=== PATIENT | female | born 1950 | race Caucasian/White ===

== ENCOUNTER → 2018-11-19 | Outpatient (CLI) | payer MEDICARE, SELFPAY ==
[2018-11-17 14:19] VITALS: BMI 27.6
--- NOTE | 2018-11-19 08:58 | EKG12_ITS ---
Test Reason : TACHY Blood Pressure : / mmHG Vent. Rate : 099 BPM Atrial Rate : 099 BPM P-R Int : 110 ms QRS Dur : 124 ms QT Int : 364 ms P-R-T Axes : 068 039 055 degrees QTc Int : 467 ms Sinus rhythm with short SD Right bundle branch block Abnormal ECG No previous ECGs available Confirmed by LAKESHIA PARMAR, JJ ([id number]), film editor supervisor TAYLOR MILLER ([id number]) on 11/24/2018 1:32:12 PM Referred By: Karen Dean Confirmed By:JJ ASHER MD
== END | disposition home or self-care (01) ==
LOC: CVS 08:57
PROVIDERS: Family Provider Internal Medicine; PCP Internal Medicine; Referring Provider Internal Medicine; Visit Provider Internal Medicine
DX: R00.0 Tachycardia, unspecified (principal)
CPT/HCPCS: 93005

== ENCOUNTER → 2018-12-19 | Outpatient (CLI) | payer MEDICARE, SELFPAY ==
[2018-11-17 14:19] VITALS: BMI 27.6
== END | disposition home or self-care (01) ==
LOC: LAB 14:25
PROVIDERS: Family Provider Internal Medicine; PCP Internal Medicine; Referring Provider Internal Medicine Hematology & Oncology; Visit Provider Internal Medicine Hematology & Oncology
DX: C90.00 Multiple myeloma not having achieved remission (principal)
CPT/HCPCS: 86850; 86900; 86901

== ENCOUNTER 2019-02-16 13:03 | Inpatient (IN) | payer MEDICARE, SELFPAY ==
[2019-02-02 09:02] VITALS: BMI 27.6
[2019-02-16 13:05] VITALS: BP 96/59; PULSE 111; RESP 16; TEMP 36.3; O2SAT 99; BMI 26.2
--- NOTE | 2019-02-16 13:40 | ED.VIS.GEN ---
History of Present Illness Chief Complaint: Abn Labs Detail of Chief Complaint: Tumor lysis syndrome Informant: Patient, - - Dr. Thomas Narrative: Patient presents with general fatigue. Patient received chemotherapy last week for multiple myeloma. Based on her labs obtained today at the oncologist office she has evidence of tumor lysis syndrome. She was sent in for IV fluids for hydration. She may require allopurinol for her elevated uric acid and a evaluation by nephrology. Dr. Thomas states that she was admitted to the hospital in [place] a few weeks ago with the same. Patient's only complaint is generalized fatigue. She states she does have some back pain but did pull a muscle in her back. She is been urinating without difficulty. - Past Medical History (1) Larynx cancer Status: Chronic (2) Multiple myeloma Status: Chronic (3) Hypothyroidism Status: Chronic (4) Type 2 diabetes mellitus Status: Chronic Past Medical History - Allergies and Home Meds Allergies/Adverse Reactions: Allergies No Known Allergies Allergy (Verified 02/16/19 13:04) Primary Care Physician: Karen Dean MD [Primary Care Provider] - Prior records reviewed: Yes Smoking Status: Former smoker Review of Systems General: Denies: Chills, Fever Eyes: Denies: Visual changes - bilaterally ENT: Denies: Bilateral ear pain Cardiovascular: Denies: Chest pain Respiratory: Denies: Dyspnea, Cough Gastrointestinal: Denies: Abdominal pain, Nausea, Vomiting, Diarrhea Genitourinary: Denies: Dysuria, Hematuria Musculoskeletal: Reports: Back pain Skin: Denies: Rash Neurological: Reports: Weakness - Generalized weakness. Denies: Headache Allergy: Denies: Uticaria Physical Exam Vital Signs/Narrative: Vital Signs Temp Pulse Resp BP Pulse Ox 02/16/19 13:05 97.4 F L 111 H 16 96/59 L 99 Inital Vital Signs reviewed: Yes General: Well nourished, Well developed Head: Normocephalic, Atraumatic Eyes: Perrl, EOMI ENT: Moist mucous membranes, - - Tracheostomy present Cardiovascular: Regular rate, Regular rhythm Respiratory: No distress, CTA bilaterally Abdomen: Soft, Nontender, Hypoactive bowel sounds Back: Nontender Skin: Normal color Neurological: Alert, Oriented x3 Psychological: Normal affect Diagnostic/Tx/Re-eval - Medical Decision Making Paperwork was sent over from the oncology office. Her CBC today reveals a hemoglobin of 9.3 and hematocrit of 28.8. Platelet count is 146,000. Chemistry studies reveal a BUN of 20 and a creatinine of 2.50. Previous creatinine on January 19 was 1.0. Her potassium is normal at 4.1. Her uric acid is 8.7. IV line will be established and patient will be given IV fluid bolus here. I will speak with hospitalist regarding admission. ED Disposition - Plan for ED Patient: Disposition: Acute Care Hospital [facility] Diagnosis: Tumor lysis syndrome Referrals: Karen Dean MD [Primary Care Provider] -
[2019-02-16] MEDS: 0.9% Normal Saline 1,000 ML 1000 ML IV (13:59)
--- NOTE | 2019-02-16 14:38 | HP.PCM_ITS ---
Problem List (1) Tumor lysis syndrome Status: Acute History of Present Illness Date of Admission: 02/16/19 The patient is a 68 year old F who is undergoing chemotherapy for multiple myeloma per Dr. Thomas and had f/u lab done today and evidence of tumor lysis syndrome was noted with a creatinine of 2.1. she was instructed to come into the ED for treatment. She has been undergoing chemo now for about 3 mos and has had the diagnosis of multiple myeloma now for about 1 yr. About 2 weeks about she was admitted at [place] for the same thing and responded well to IVF. She has a h/o laryngeal cancer and had a total laryngectomy for this. She is feeling well otherwise and only complains of some fatigue which is chronic for her. Pt states that she is on Lovenox 80 mcg BID for DVT related to malignancy. 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 DVT (deep venous thrombosis) I82.409 Emphysema lung J43.9 GERD (gastroesophageal reflux disease) K21.9 Hyperlipidemia E78.5 Hypothyroidism E03.9 Laryngeal cancer C32.9 Leg ulcer L97.909 Tracheostomy present Z93.0 Type 2 diabetes mellitus E11.9 Dx : 2005 Last exacerbation : DKA : never Hypoglycemic episode : never ER visit : never HTN (hypertension) I10 Allergies No Known Allergies Allergy (Verified 02/16/19 13:04) Home Medications: Ambulatory Orders Medication Instructions Recorded albuterol sulfate HFA 90 2 puff INHALATION Q4H PRN g 01/23/18 mcg/actuation aerosol inhaler Enoxaparin Sodium 02/16/19 Glipizide 10 mg PO BID 02/16/19 Hydrocodone/Acetaminophen 1 ea PO Q6H PRN PRN 02/16/19 [Hydrocodon-Acetaminophn 10-325] Levothyroxine Sodium 137 mcg PO DAILY 02/16/19 Lisinopril [Prinivil] 15 mg PO DAILY 02/16/19 Metformin HCl 1,000 mg PO BID 02/16/19 Surgical History: - - total laryngectomy Psychiatric History: No pertinent psych hx 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 Denies: Anorexia, Chills, Fever, Night Sweats, Malaise, Weight Change, Fatigue Eyes: Denies: Blurred vision, Cataracts, Conjunctivae Inflammation, Double vision, Drainage, Eyelid Inflammation, Pain, Redness, Vision Change HEENT: Denies: Difficulty Hearing, Difficulty Swallowing, Dysphasia, Ear Pain, Eye Pain, Hard of Hearing, Head Aches, Hearing Changes, Nasal bleeding, Nasal Congestion, Post Nasal Drip, Sinus Congestion, Sinus Drainage, Sore Throat, Visual Changes Cardiovascular: Denies: Chest Pain, Claudication, Chest Pressure, Chest Tightness, Edema, Heaviness, Light Headedness, Orthopnea, Palpitations, Paroxysmal Noc. Dyspnea, Syncope Respiratory: Denies: Cough, Hemoptysis, Pleuritic Pain, Shortness of Breath, Shortness of breath at rest, Shortness of breath upon exertion, Sputum production, Wheezing Gastrointestinal: Denies: Abdominal Pain, Constipation, Diarrhea, Dyspepsia, Hematemesis, Hematochezia, Nausea, Melena, Vomiting - superficial tenderness 2/2 lovenox injections Genitourinary: Denies: Dysuria, Frequency, Hematuria, Hesitancy, Incontinence, Nocturia, Retention, Urgency Gynecological: Denies: Breast symptoms, Excessively long or heavy periods, Sexual concerns, Vaginal bleeding, Vaginal discharge, Vaginal itching Musculoskeletal: Denies: Arm Pain, Back Pain, Foot Pain, Hand Pain, Joint Pain, Joint stiffness, Joint swelling, Joint Tenderness, Leg Pain, Muscle pain, Neck Pain, Shoulder Pain Skin: Denies: Dryness, Jaundice, Lesions, Pruritis, Rash, Skin Changes Neurological: Denies: Balance problems, Blurred vision, Double vision, Change in Speech, Slurred speech, Confusion, Difficulty swallowing, Focal weakness, Headaches, Incoordination, Numbness, Tingling, Tremor, Seizures Psychiatric: Denies: Anxiety, Depression, Suicidal Ideations Endocrine: Denies: Change in Body Habitus, Heat/ Cold Intolerance, Polydipsia, Polyuria, Hx of Irradiation, Hx of Thyroiditis Hematologic/ Lymphatic: Reports: Anemia. Denies: Adenopathy, Easy Bruising, Easy Bleeding, Petechiae, Purpura, Hx of blood clot, Hx of blood transfusion VTE Information - Inpt Only VTE Present on Admission: No Patient Problems: Active and Suspected Problems (Last Reviewed 07/21/18 @ 14:52 by Alba Garcia) Tumor lysis syndrome (Acute) - Physical Exam Vitals/I&O's: Vital Signs Temp Pulse Resp BP Pulse Ox 97.4 F L 111 H 16 96/59 L 99 02/16/19 13:05 02/16/19 13:05 02/16/19 13:05 02/16/19 13:05 02/16/19 13:05 Oxygen Delivery Method Room Air Weight: 71.668 kg Body Mass Index (BMI) 26.2 General: Alert, Oriented x3, Cooperative, No apparent distress, Well developed, Well nourished HEENT: Atraumatic, PERRLA, EOMI, Normocephalic, EAC Clear Oral: Moist Mucosa, No Gingival or Mucosal Lesions/ Ulcerations, - - poor dentition Neck: Supple, No JVD, Negative Carotid Bruits, Negative Hepatojugular Reflux, No Nodes, No Nuchal Rigidity, Trachea Midline, - - stoma in place related to total laryngectomy Lungs: No rhonchi, No rales, Diminished, Wheezes, - - comfortable breathing Cardiovascular: Regular rate, Regular Rhythm, Normal S1, Normal S2, No murmurs, No Ectopic Activity, No rub noted, No Gallop Abdomen: Bowel Sounds Present, Soft, Non-Distended, No Hepato-splenomegaly, Tender - superfical tenderness, No hernias noted Extremities: No clubbing, No cyanosis, No edema, No Calf Tenderness, Peripheral Pulses Normal Skin: No rashes, No breakdown Musculoskeletal: No Tenderness to Palpation of Joints or Extremities, No Muscle Wasting Lymphatic: No Cervical, Supraclavicular, or Inguinal Adenopathy Neurological: Cranial nerves II-XII grossly intact, Deep Tendon Reflexes 2+/4 and Symmetrical, Neuro grossly intact, Motor Exam 5/5 strength throughout, Muscle tone normal, Coordination normal Psych/Mental Status: Normal Affect, Appropriate Current Medications Albuterol Sulfate (Ventolin Aerosols) 2.5 mg INHALATION Q4H PRN PRN PRN Reason: SOB &/OR WHEEZING Enoxaparin Sodium (Lovenox) 70 mg SC Q12@0600,1800 LAURIE Sodium Chloride () 1,000 mls @ 150 mls/hr IV .Q6H40M LAURIE Levothyroxine Sodium (Synthroid) 137 mcg PO DAILY@0600 [facility] Assessment/Plan All Active Problems (Last Reviewed 07/21/18 @ 14:52 by Alba Garcia) Tumor lysis syndrome (Acute) Tumor Lysis Syndrome -aggressive hydration -Allopurinol 200 TID for now -check uric acid now and in am -? rasburicase if meets criteria and no improvements in uric acid with allopurinol and hydration MARIA D -2/2 to tumor lysis -aggresive hydration (NS @ 250 cc/hr for now) -UO is good -Check CMP now -q 8 hr I/O -repeat CMP/Mag and Phos in am -may need to consider nephrology consult if doesn't improve or worsens with current treatment DM-2 Uncontrolled -A1c 10.6 (11/17/18) -On Metformin and Glipizide at home -will hold for now with creatinine elevation -diabetic diet -AC SSI for blood sugar control for now H/O DVT x2 -lovenox 80 mg BID as ordered at home -has h/o DVT x2 related to malignancy Multiple Myeloma -consult Hem/Onc COPD/Emphysema -continue prn albuterol -IS DJD -continue [place] for pain relief H/O Laryngeal Ca with total Laryngectomy -stable -has stoma -no dietary restrictions Code Visit Inpatient E&M: 63212 Init Hosp L3
[2019-02-16 15:19] VITALS: BP 113/64; PULSE 98; RESP 20; TEMP 36.7; O2SAT 92
[2019-02-16 15:21] VITALS: BMI 26.2
[2019-02-16 15:26] VITALS: BMI 26.3
[2019-02-16 16:02] LABS: ALB/GLOB Ratio 0.7 RATIO (0.9-2.4); AST(SGOT) 19 U/L (15-37); Alanine Aminotransfer ALT/SGPT 40 U/L (13-56); Albumin, Serum 2.6 g/dL (3.2-5.0); Alkaline Phosphatase 116 U/L (45-117); Anion Gap 8 (5-15); BUN 22 mg/dL (7-18); BUN/Creat Ratio 8.6 RATIO (10-20); Calcium,Total 7.1 mg/dL (8.5-10.1); Chloride 104 mmol/L (98-107); Creatinine, Serum 2.57 mg/dL (0.55-1.02); EST Glomerular Filtration Rate 20 mL/min (>60); Est Glom Filt Rate - Afr Amer 24 mL/min (>60); Estimated Creatinine Clearance 19.38 ml/min; Globulin 3.8 g/dL (2.2-4.2); Glucose 86 mg/dL (74-106); Potassium 3.7 mmol/L (3.5-5.1); Protein, Total 6.4 g/dL (6.4-8.2); Sodium Level 138 mmol/L (136-145); Uric Acid 7.9 mg/dL (2.6-6.0)
[2019-02-16] MEDS: 0.9% Normal Saline 1,000 ML 250 ML IV ×2 (16:10→20:05)
[2019-02-16 17:20] LABS: Bedside Glucose 98 mg/dL (70-110)
[2019-02-16] MEDS: Allopurinol 100 MG Tablet 200 MG PO (17:21)
--- NOTE | 2019-02-16 17:22 | CPS ---
zaire cheng'emmanuelle pt has trach
[2019-02-16 21:20] VITALS: BP 121/62; PULSE 98; RESP 20; TEMP 37.2; O2SAT 97
[2019-02-16] MEDS: Mag Hydrox/Al Hydrox/Simeth 30 ML UDC PO (21:35)
[2019-02-16] MEDS: Enoxaparin 80 MG/0.8 ML Syringe 70 MG SC (21:37)
--- NOTE | 2019-02-16 21:42 | NURSING ---
Blood sugar at this time is 67. Peanut butter crackers and orange juice 4 oz. given per pt. request. Will monitor. Pt. asymptomatic.
[2019-02-16 22:00] LABS: Bacteria 0 SEEN /hpf (None Seen); Mucous, Urine 0 SEEN /hpf (<or=2+); White Blood Cells 0 SEEN /hpf (0-5)
[2019-02-16 22:06] LABS: Bedside Glucose 67 mg/dL (70-110)
[2019-02-16 22:14] LABS: Color, Urine Yellow (Yellow); Glucose, Dipstick Normal (Normal); Ketone-Dipstick Negative (Negative); Leukocyte Esterase-Dipstick Negative /ul (Negative); Nitrite-Dipstick Negative (Negative); Occult Blood-Urine 150 /ul (Negative); Protein-Dipstick 15 mg/dl (Negative); Urine Bilirubin Dipstick Negative (Negative); Urine Clarity Clear (Clear); Urine Urobilinogen Normal (Normal)
[2019-02-16 22:19] LABS: Red Blood Cells-Urine 0-5 SEEN /hpf (0-5); Squamous Epithelial Cells - UA 0-5 SEEN /hpf (5-10)
[2019-02-17] VITALS (7 sets, daily range): BP systolic 112–133; BP diastolic 51–79; PULSE 84–111; RESP 14–18; TEMP 37.1–38.2; O2SAT 93–100
[2019-02-17] MEDS: 0.9% Normal Saline 1,000 ML 125 ML IV ×2 (00:39→07:57)
[2019-02-17] MEDS: Levothyroxine 137 MCG Tablet PO (06:10)
[2019-02-17 06:45] LABS: Bedside Glucose 121 mg/dL (70-110)
[2019-02-17 06:54] LABS: Absolute Lymphocyte Count 0.41 X10^3/uL (0.83-4.51); Absolute Neutrophil Count 0.4 X10^3/uL (2.0-7.7); Basophil# 0.01 X10^3/uL; Eosinophil# 0.08 X10^3/uL; Eosinophils% 7.7 % (0-5); Hematocrit 25.6 % (37-47); Hemoglobin 7.9 g/dL (12.0-15.0); Lymphocyte # 0.41 X10^3/ul (4.0); Lymphocyte % 39.4 % (19-41); Mean Corp Hgb Conc 30.9 g/dL (32-36); Mean Corpuscular Hgb 30.7 pg (27.0-32.0); Mean Corpuscular Volume 99.6 fL (81-99); Mean Platelet Vol. 11.8 fl (6.2-12.0); Monocyte% 9.6 % (0-10); NRBC Flagged by Analyzer 0 % (0-5); Neutrophil # 0.43 X10^3/uL (2.7-7.7); Neutrophil % 41.3 % (47-70); POSITIVE COUNT YES; POSITIVE DIFFERENTIAL YES; POSITIVE MORPHOLOGY YES; Platelet Count 114 K/mm3 (150-450); RBC Distribution Width CV 16.5 % (11.6-14.6); RBC Distribution Width SD 58.7 fl (35.1-43.9); Red Blood Count 2.57 M/mm3 (4.2-5.4)
[2019-02-17 07:17] LABS: ALB/GLOB Ratio 0.7 RATIO (0.9-2.4); AST(SGOT) 26 U/L (15-37); Alanine Aminotransfer ALT/SGPT 33 U/L (13-56); Albumin, Serum 2.1 g/dL (3.2-5.0); Alkaline Phosphatase 105 U/L (45-117); Anion Gap 6 (5-15); BUN 20 mg/dL (7-18); BUN/Creat Ratio 8.3 RATIO (10-20); Calcium,Total 6.6 mg/dL (8.5-10.1); Chloride 107 mmol/L (98-107); Creatinine, Serum 2.41 mg/dL (0.55-1.02); EST Glomerular Filtration Rate 21 mL/min (>60); Est Glom Filt Rate - Afr Amer 26 mL/min (>60); Estimated Creatinine Clearance 20.66 ml/min; Globulin 3.2 g/dL (2.2-4.2); Glucose 118 mg/dL (74-106); Magnesium 1.1 mg/dL (1.6-2.6); Phosphorus 2.3 mg/dL (2.5-4.9); Potassium 4.1 mmol/L (3.5-5.1); Protein, Total 5.3 g/dL (6.4-8.2); Sodium Level 138 mmol/L (136-145); Uric Acid 6.8 mg/dL (2.6-6.0)
[2019-02-17 07:35] LABS: Differential Indicated SCAN CRITERIA MET
[2019-02-17 07:40] LABS: Hypochromasia 1+
[2019-02-17] MEDS: Allopurinol 100 MG Tablet 200 MG PO ×2 (07:57→12:37)
[2019-02-17] MEDS: Enoxaparin 80 MG/0.8 ML Syringe 70 MG SC ×2 (07:57→21:29)
[2019-02-17] MEDS: TBO-FILGRASTIM 300 MCG/0.5 ML ML SC (07:58)
[2019-02-17 08:37] LABS: CPK Total, Creatine Kinase 54 U/L (26-192)
--- NOTE | 2019-02-17 08:48 | ONC.CON.INP2 ---
- Problem List (1) Tumor lysis syndrome Status: Acute Subjective Chief Complaint: from Dr Thomas office History of Present Illness: Per Dr. 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 Bilateral DVTs ? HPI:??68-year-old female with history of?Laryngeal CA in 2003 in [place],?nonhealing ulcer on the lower extremities since last fall. Patient is seen her primary care physician and more recently Dr. Franz for evaluation and biopsy of her nonhealing skin ulcers.?? ? Patient also has palpable purpura with necrotic center on her arm which is biopsy last week. She also complained of neuropathy the lower extremity and also her both hands more recently. Additional tests revealed a monoclonal protein?0.48 gm/dl?and elevated CRP. Hepatitis B, hepatitis C?Ag & Ab?as well as HIV were negative. Her rheumatoid factor and?MAY?were negative. Her?cryoglobulin level was markedly elevated?5,200. ? Patient also complaining of dyspnea with exertion. She has a history of head and neck cancer total laryngectomy received chemoradiation therapy in 2003. She was started on prednisone 20?mg?twice daily last week and her skin ulcers on her legs appears to be improving. Patient has no fever chills night sweats, weight loss.?No hyperviscosity symptoms,?no evidence of anemia, hypercalcemia or renal insufficiency. She denies any bone pain or arthritis pain. ? Current treatment:?Darzelex &?Revlimid patient was seen in the office for evaluation for next cycle of treatment yesterday. Subsequent to the visit, lab work returned showing acute kidney injury with elevated LDH and uric acid raising concern for possible tumor lysis syndrome. Patient was also found to be neutropenic. She was directed to the emergency room. She was admitted and started on IV hydration. She offers no complaints is morning. Says she's been feeling quite well. She denies gross hematuria and dysuria. No flank pain per se. No recent fever. She's tolerating treatment very well. Vasculitic rash significantly improved since taking initial prednisone taper and starting on definitive treatment for underlying multiple myeloma. Past Medical History: Chronic Problems (Last Reviewed 07/21/18 @ 14:52 by Alba Garcia) Larynx cancer (Chronic) Multiple myeloma (Chronic) Hypothyroidism (Chronic) Tachycardia (Chronic) Dermatitis (Chronic) Type 2 diabetes mellitus (Chronic) Type 2 diabetes, uncontrolled, with ulcer of ankle (Chronic) Last A1c 10 Past Medical/Surgical History: Past Medical History - Most Recent Inpatient Visit Past Medical History Start: 02/16/19 15:07 Text: Status: Complete Freq: ONCE Protocol: Document 02/16/19 15:26 EY (Rec: 02/16/19 15:29 EY [id number]) BMI Required to complete PMH What is Patient's BMI 26.3 Past Medical History Unable History Recalled No Query Text:Pt Unable/Family Not Present Neurologic Medical History Hx Stroke/TIA No Hx Dementia/Alzheimer's No Hx Parkinson's Disease No Hx Seizures No Hx Multiple Sclerosis No Hx Migraines No Cardiac Medical History VTE Present on Admission No Hx of Deep Vein Thrombosis/VTE/PE Yes Hx Hypertension Yes: controlled with medications Hx Chest Pain/Angina No Hx Heart Attack No Hx Cardiac Surgery/Stents/Etc. No Hx Heart Failure No Hx Pacemaker/AICD No Hx Irregular Heartbeat and/or Afib No Hx Anticoagulant Therapy Yes: Lovenox Query Text:(Coumadin, Aspirin, Plavix, Xarelto, etc.) Hx Pain in Legs when Walking/Leg Cramps No Respiratory Medical History Hx COPD No Hx Emphysema No Hx Smoking Yes Smoking Status Former smoker Tobacco Use - Hx Smoking Cessation Date 01/31/04 Hx Tobacco Use in last 12 months No Hx Sleep Apnea No Do you snore loudly (louder than talking No or can be heard through closed doors)? Do you often feel tired/ fatigued/ No sleepy during daytime? Has anyone observed you stop breathing No during sleep? STOP Results Negative GI Medical History Hx Ulcer No Hx Hepatitis No Hx Cirrhosis No Hx GI Bleed No Hx Unplanned Weight Loss No Genitourinary Medical History Indwelling Catheter in Place on Arrival/ No Admission Hx Renal Disease No Hx Dialysis No Musculoskeletal History Hx Arthritis No Hx Rheumatoid Arthritis No Endocrine Medical History Hx Diabetes Yes Hx Thyroid Disease Yes Hematologic Medical History Hx of Blood Transfusion Yes Hx of Transfusion in last 3 Months No Ever experience any problems with No transfusion(s)? Hx of Preganancy in last 3 Months No Nurse Filling Out Transfusion & EYOUNG Questions: Date: 02/16/19 Time: 15:28 Psycho/Social Medical History Hx Depression No Hx Anxiety No Hx Behavior Disorder No Hx Alcohol Use No Hx Substance Use No Other Medical History Hx Blood Disorders No Hx Anemia Yes Hx Cancer Yes: MULTIPLE MYELOMA, larynx Hx Drug Resistant Organism No Wound/Pressure Injury Present on Arrival No /Admission Query Text:If yes, chart assessment in Shift/Clinical Findings Central Line/PICC/VAD Present on Arrival No /Admission Antibiotics within last 7 days? No Risk for Readmission Number of Risk Factors 5 At Risk for Readmission Patient is At Risk For Readmission Patient is eligible for Call Back Y Past Medical History (Last Reviewed 07/21/18 @ 14:52 by Alba Garcia) Bronchitis (Acute) DJD (degenerative joint disease) of knee (Acute) DVT (deep venous thrombosis) (Acute) Emphysema lung (Acute) GERD (gastroesophageal reflux disease) (Acute) Hyperlipidemia (Acute) Hypothyroidism (Acute) Laryngeal cancer (Acute) Leg ulcer (Acute) Tracheostomy present (Acute) Type 2 diabetes mellitus (Acute) HTN (hypertension) (Chronic) - Social History Lives: With Family Smoking Status: Former smoker Tobacco Use: - Alcohol: None Drugs: None Allergies/Adverse Reactions: Allergy/AdvReac Type Severity Reaction Status Date / Time No Known Allergies Allergy Verified 02/16/19 13:04 Vital Signs Height 1.65 m Weight: 76.3 kg Weight in Pounds 168.2 lbs Pulse Ox 95 Temperature 98.7 F Pulse Rate 84 Respiratory Rate 16 Blood Pressure 112/51 Blood Pressure Position Semi-Fowlers - Physical Exam General: Alert, Oriented x3 Cardiac:: Regular rhythm Lungs: Normal air movement Abdomen:: Non-distended Skin:: - - A few remnant palpable purpura on the lower extremity scattered. Overall markedly improved. Laboratory Data: Laboratory Tests 02/17/19 02/17/19 02/17/19 Range/Units 06:35 06:35 06:35 WBC 1.0 L* (4.4-11.0) K/mm3 RBC 2.57 L (4.2-5.4) M/mm3 Hgb 7.9 L (12.0-15.0) g/dL Hct 25.6 L (37-47) % MCV 99.6 H (81-99) fL MCH 30.7 (27.0-32.0) pg MCHC 30.9 L (32-36) g/dL RDW Std Deviation 58.7 H (35.1-43.9) fl RDW Coeff of Nathan 16.5 H (11.6-14.6) % Plt Count 114 L (150-450) K/mm3 MPV 11.8 (6.2-12.0) fl Immature Gran % (Auto) 1.000 H (0.0-0.9) % Neut % (Auto) 41.3 L (47-70) % Lymph % (Auto) 39.4 (19-41) % Dubois % (Auto) 9.6 (0-10) % Eos % (Auto) 7.7 H (0-5) % Baso % (Auto) 1.0 (0-1) % Absolute Neuts (auto) 0.4 L (2.0-7.7) X10^3/uL Absolute Lymphs (auto) 0.41 L (0.83-4.51) X10^3/uL Nucleated RBC % 0 (0-5) % Diff Path Review May foll Hypochromasia 1+ Sodium 138 (136-145) mmol/L Potassium 4.1 (3.5-5.1) mmol/L Chloride 107 (98-107) mmol/L Carbon Dioxide 25.0 (21.0-32.0) mmol/L Anion Gap 6 (5-15) BUN 20 H (7-18) mg/dL Creatinine 2.41 H (0.55-1.02) mg/dL Estim Creat Clear Calc 20.66 ml/min Est GFR (MDRD) Af Amer 26 L (>60) mL/min Est GFR (MDRD) Non-Af 21 L (>60) mL/min BUN/Creatinine Ratio 8.3 L (10-20) RATIO Glucose 118 H (74-106) mg/dL Uric Acid 6.8 H (2.6-6.0) mg/dL Calcium 6.6 L (8.5-10.1) mg/dL Phosphorus 2.3 L (2.5-4.9) mg/dL Magnesium 1.1 L (1.6-2.6) mg/dL Total Bilirubin 0.30 (0.20-1.00) mg/dL AST 26 (15-37) U/L ALT 33 (13-56) U/L Alkaline Phosphatase 105 (45-117) U/L Total Creatine Kinase 54 (26-192) U/L Total Protein 5.3 L (6.4-8.2) g/dL Albumin 2.1 L (3.2-5.0) g/dL Globulin 3.2 (2.2-4.2) g/dL Albumin/Globulin Ratio 0.7 L (0.9-2.4) RATIO Urine Color (Yellow) Urine Clarity (Clear) Urine pH (5.0 - 8.0) Ur Specific [place] (1.002-1.030) Urine Protein (Negative) mg/dl Urine Glucose (UA) (Normal) mg/dl Urine Ketones (Negative) mg/dl Urine Occult Blood (Negative) /ul Urine Nitrite (Negative) Urine Bilirubin (Negative) mg/dL Urine Urobilinogen (Normal) mg/dl Ur Leukocyte Esterase (Negative) /ul Urine RBC (0-5) /hpf Urine WBC (0-5) /hpf Ur Squamous Epith Cells (5-10) /hpf Urine Bacteria (None Seen) /hpf Urine Mucus (<or=2+) /hpf POC Glucose (70-110) mg/dL 02/17/19 02/16/19 02/16/19 Range/Units 06:33 21:40 21:30 WBC (4.4-11.0) K/mm3 RBC (4.2-5.4) M/mm3 Hgb (12.0-15.0) g/dL Hct (37-47) % MCV (81-99) fL MCH (27.0-32.0) pg MCHC (32-36) g/dL RDW Std Deviation (35.1-43.9) fl RDW Coeff of Nathan (11.6-14.6) % Plt Count (150-450) K/mm3 MPV (6.2-12.0) fl Immature Gran % (Auto) (0.0-0.9) % Neut % (Auto) (47-70) % Lymph % (Auto) (19-41) % Dubois % (Auto) (0-10) % Eos % (Auto) (0-5) % Baso % (Auto) (0-1) % Absolute Neuts (auto) (2.0-7.7) X10^3/uL Absolute Lymphs (auto) (0.83-4.51) X10^3/uL Nucleated RBC % (0-5) % Diff Path Review Hypochromasia Sodium (136-145) mmol/L Potassium (3.5-5.1) mmol/L Chloride (98-107) mmol/L Carbon Dioxide (21.0-32.0) mmol/L Anion Gap (5-15) BUN (7-18) mg/dL Creatinine (0.55-1.02) mg/dL Estim Creat Clear Calc ml/min Est GFR (MDRD) Af Amer (>60) mL/min Est GFR (MDRD) Non-Af (>60) mL/min BUN/Creatinine Ratio (10-20) RATIO Glucose (74-106) mg/dL Uric Acid (2.6-6.0) mg/dL Calcium (8.5-10.1) mg/dL Phosphorus (2.5-4.9) mg/dL Magnesium (1.6-2.6) mg/dL Total Bilirubin (0.20-1.00) mg/dL AST (15-37) U/L ALT (13-56) U/L Alkaline Phosphatase (45-117) U/L Total Creatine Kinase (26-192) U/L Total Protein (6.4-8.2) g/dL Albumin (3.2-5.0) g/dL Globulin (2.2-4.2) g/dL Albumin/Globulin Ratio (0.9-2.4) RATIO Urine Color Yellow (Yellow) Urine Clarity Clear (Clear) Urine pH 6.0 (5.0 - 8.0) Ur Specific [place] 1.010 (1.002-1.030) Urine Protein 15 H (Negative) mg/dl Urine Glucose (UA) Normal (Normal) mg/dl Urine Ketones Negative (Negative) mg/dl Urine Occult Blood 150 H (Negative) /ul Urine Nitrite Negative (Negative) Urine Bilirubin Negative (Negative) mg/dL Urine Urobilinogen Normal (Normal) mg/dl Ur Leukocyte Esterase Negative (Negative) /ul Urine RBC 0-5 SEEN (0-5) /hpf Urine WBC 0 SEEN (0-5) /hpf Ur Squamous Epith Cells 0-5 SEEN (5-10) /hpf Urine Bacteria 0 SEEN (None Seen) /hpf Urine Mucus 0 SEEN (<or=2+) /hpf POC Glucose 121 H 67 L (70-110) mg/dL 02/16/19 02/16/19 Range/Units 17:15 15:17 WBC (4.4-11.0) K/mm3 RBC (4.2-5.4) M/mm3 Hgb (12.0-15.0) g/dL Hct (37-47) % MCV (81-99) fL MCH (27.0-32.0) pg MCHC (32-36) g/dL RDW Std Deviation (35.1-43.9) fl RDW Coeff of Nathan (11.6-14.6) % Plt Count (150-450) K/mm3 MPV (6.2-12.0) fl Immature Gran % (Auto) (0.0-0.9) % Neut % (Auto) (47-70) % Lymph % (Auto) (19-41) % Dubois % (Auto) (0-10) % Eos % (Auto) (0-5) % Baso % (Auto) (0-1) % Absolute Neuts (auto) (2.0-7.7) X10^3/uL Absolute Lymphs (auto) (0.83-4.51) X10^3/uL Nucleated RBC % (0-5) % Diff Path Review Hypochromasia Sodium 138 (136-145) mmol/L Potassium 3.7 (3.5-5.1) mmol/L Chloride 104 (98-107) mmol/L Carbon Dioxide 26.0 (21.0-32.0) mmol/L Anion Gap 8 (5-15) BUN 22 H (7-18) mg/dL Creatinine 2.57 H (0.55-1.02) mg/dL Estim Creat Clear Calc 19.38 ml/min Est GFR (MDRD) Af Amer 24 L (>60) mL/min Est GFR (MDRD) Non-Af 20 L (>60) mL/min BUN/Creatinine Ratio 8.6 L (10-20) RATIO Glucose 86 (74-106) mg/dL Uric Acid 7.9 H (2.6-6.0) mg/dL Calcium 7.1 L (8.5-10.1) mg/dL Phosphorus (2.5-4.9) mg/dL Magnesium (1.6-2.6) mg/dL Total Bilirubin 0.50 (0.20-1.00) mg/dL AST 19 (15-37) U/L ALT 40 (13-56) U/L Alkaline Phosphatase 116 (45-117) U/L Total Creatine Kinase (26-192) U/L Total Protein 6.4 (6.4-8.2) g/dL Albumin 2.6 L (3.2-5.0) g/dL Globulin 3.8 (2.2-4.2) g/dL Albumin/Globulin Ratio 0.7 L (0.9-2.4) RATIO Urine Color (Yellow) Urine Clarity (Clear) Urine pH (5.0 - 8.0) Ur Specific [place] (1.002-1.030) Urine Protein (Negative) mg/dl Urine Glucose (UA) (Normal) mg/dl Urine Ketones (Negative) mg/dl Urine Occult Blood (Negative) /ul Urine Nitrite (Negative) Urine Bilirubin (Negative) mg/dL Urine Urobilinogen (Normal) mg/dl Ur Leukocyte Esterase (Negative) /ul Urine RBC (0-5) /hpf Urine WBC (0-5) /hpf Ur Squamous Epith Cells (5-10) /hpf Urine Bacteria (None Seen) /hpf Urine Mucus (<or=2+) /hpf POC Glucose 98 (70-110) mg/dL Assessment and Plan 1) Acute kidney injury. Assessment: -Patient's baseline serum creatinine on 11/17/2018 was 1.06 mg/dl. -Patient's 24-hour urine collection at baseline on 11/21 demonstrated 0.27 g of protein per 24 hours. Of that 0.06 g was monoclonal protein. -She has had 6 doses of daratumumab along with Revlimid to date. No previous evidence of tumor lysis. -Etiology of acute kidney injury currently therefore not clear. Plan: -increase hydration. -Renal consultation. -Magnesium replacement. -Continue to monitor electrolytes including serum creatinine, potassium, uric acid, magnesium, phosphorus as well as LDH. 2) Neutropenia. Assessment: -Afebrile. Plan: -Granix until ANC improves. Medications: Prescriptions This Visit Medication Instructions Recorded Enoxaparin Sodium 02/16/19 Glipizide 10 mg PO BID 02/16/19 Hydrocodone/Acetaminophen 1 ea PO Q6H PRN PRN 02/16/19 [Hydrocodon-Acetaminophn 10-325] Levothyroxine Sodium 137 mcg PO DAILY 02/16/19 Lisinopril [Prinivil] 15 mg PO DAILY 02/16/19 Metformin HCl 1,000 mg PO BID 02/16/19 Medications Added to Medication List This Visit Category Date Time Status 0.9% Normal Saline 1,000 ml Med 02/17/19 08:12 Ordered IV 250 mls/hr Levothyroxine [Synthroid] Med 02/17/19 06:00 Active 137 mcg PO DAILY@0600 Magnesium Sulfate 2 gm Med 02/17/19 08:08 Ordered 0.9% Normal Saline 100 ml IV X1 Tbo-Filgrastim [Granix] Med 02/17/19 10:00 Active 300 mcg SC DAILY Primary Care Provider: Karen Dean MD Referring Provider: Marlen Chacon DO
[2019-02-17] MEDS: 0.9% Normal Saline 1,000 ML 250 ML IV (09:37)
[2019-02-17 12:15] LABS: Bedside Glucose 141 mg/dL (70-110)
--- NOTE | 2019-02-17 12:27 | PN_ITS ---
<Leo Munoz - Last Filed: 02/17/19 12:27> Patient Problems: Active and Suspected Problems (Last Reviewed 07/21/18 @ 14:52 by Alba Garcia) Tumor lysis syndrome (Acute) Subjective: Pt resting comfortably in bed NAD. No SOB. Does have some wheezy but states she wheezes at baseline. No LE edema. No abd pain/nausea/vomiting. - Physical Exam Vitals/I&O's: Vital Signs Temp Pulse Resp BP Pulse Ox 99.3 F H 94 18 129/79 H 100 02/17/19 09:20 02/17/19 09:20 02/17/19 09:20 02/17/19 09:20 02/17/19 09:20 Oxygen Delivery Method Room Air Weight: 168 lb 3.403 oz Body Mass Index (BMI) 26.2 Intake and Output for Last 24 Hours 02/15/19 02/16/19 02/17/19 23:59 23:59 23:59 Intake Total 3264.17 / 3264.17 1729.00 / 1729.00 Output Total 1000 / 1000 Balance 3264.17 / 3264.17 729.00 / 729.00 General: Alert, Oriented x3, Cooperative HEENT: Atraumatic, PERRLA, EOMI, Normocephalic Neck: Supple, No JVD, Negative Carotid Bruits Lungs: Clear to auscultation, Normal air movement, Wheezes Cardiovascular: Regular rate, No murmurs Abdomen: Bowel Sounds Present, Soft, Non Tender Extremities: No edema, Capillary Refill Less than 3 Seconds Skin: No rashes, No breakdown Musculoskeletal: No Tenderness to Palpation of Joints or Extremities Neurological: Cranial nerves II-XII grossly intact Psych/Mental Status: Normal Affect, Appropriate, Alert and oriented to time, place, person, mood and affect Laboratory Results 02/16/19 15:17: Sodium 138, Potassium 3.7, Chloride 104, Carbon Dioxide 26.0, Anion Gap 8, BUN 22 H, Creatinine 2.57 H, Estim Creat Clear Calc 19.38, Est GFR (MDRD) Af Amer 24 L, Est GFR (MDRD) Non-Af 20 L, BUN/Creatinine Ratio 8.6 L, Glucose 86, Uric Acid 7.9 H, Calcium 7.1 L, Total Bilirubin 0.50, AST 19, ALT 40, Alkaline Phosphatase 116, Total Protein 6.4, Albumin 2.6 L, Globulin 3.8, Albumin/Globulin Ratio 0.7 L 02/16/19 17:15: POC Glucose 98 02/16/19 21:30: Urine Color Yellow, Urine Clarity Clear, Urine pH 6.0, Ur Specific [place] 1.010, Urine Protein 15 H, Urine Glucose (UA) Normal, Urine Ketones Negative, Urine Occult Blood 150 H, Urine Nitrite Negative, Urine Bilirubin Negative, Urine Urobilinogen Normal, Ur Leukocyte Esterase Negative, Urine RBC 0-5 SEEN, Urine WBC 0 SEEN, Ur Squamous Epith Cells 0-5 SEEN, Urine Bacteria 0 SEEN, Urine Mucus 0 SEEN 02/16/19 21:40: POC Glucose 67 L 02/17/19 06:33: POC Glucose 121 H 02/17/19 06:35: WBC 1.0 L*, RBC 2.57 L, Hgb 7.9 L, Hct 25.6 L, MCV 99.6 H, MCH 30.7, MCHC 30.9 L, RDW Std Deviation 58.7 H, RDW Coeff of Nathan 16.5 H, Plt Count 114 L, MPV 11.8, Immature Gran % (Auto) 1.000 H, Neut % (Auto) 41.3 L, Lymph % (Auto) 39.4, [place] % (Auto) 9.6, Eos % (Auto) 7.7 H, Baso % (Auto) 1.0, Absolute Neuts (auto) 0.4 L, Absolute Lymphs (auto) 0.41 L, Nucleated RBC % 0, Diff Path Review May foll, Hypochromasia 1+ 02/17/19 06:35: Sodium 138, Potassium 4.1, Chloride 107, Carbon Dioxide 25.0, Anion Gap 6, BUN 20 H, Creatinine 2.41 H, Estim Creat Clear Calc 20.66, Est GFR (MDRD) Af Amer 26 L, Est GFR (MDRD) Non-Af 21 L, BUN/Creatinine Ratio 8.3 L, Glucose 118 H, Uric Acid 6.8 H, Calcium 6.6 L, Phosphorus 2.3 L, Magnesium 1.1 L , Total Bilirubin 0.30, AST 26, ALT 33, Alkaline Phosphatase 105, Total Protein 5.3 L, Albumin 2.1 L, Globulin 3.2, Albumin/Globulin Ratio 0.7 L 02/17/19 06:35: Total Creatine Kinase 54 02/17/19 12:11: POC Glucose 141 H Current Medications Hydrocodone Bitart/Acetaminophen ([place] 5mg-325mg) 1 tablet PO Q6H PRN PRN PRN Reason: Pain Score 4-10/10 Al Hydroxide/Mg Hydroxide (Mylanta Ii) 30 ml PO Q6H PRN PRN PRN Reason: INDIGESTION Last Admin: 02/16/19 21:35 Dose: 30 ml Documented by: Albuterol Sulfate (Ventolin Aerosols) 2.5 mg INHALATION Q4H PRN PRN PRN Reason: SOB &/OR WHEEZING Albuterol/Ipratropium (Duoneb) 3 ml INHALATION X1 ONE Stop: 02/17/19 12:14 Allopurinol (Zyloprim) 200 mg PO TIDCM [facility] Last Admin: 02/17/19 07:57 Dose: 200 mg Documented by: Bisacodyl (Dulcolax) 5 mg PO DAILY PRN PRN PRN Reason: Constipation Dextrose (D50w Syringe) 0 gm IV X1 PRN; Protocol PRN Reason: Hypoglycemia Enoxaparin Sodium (Lovenox) 70 mg SC Q12 [facility] Last Admin: 02/17/19 07:57 Dose: 70 mg Documented by: Glucagon () 1 mg IM .X1 PRN PRN Reason: Hypoglycemia Sodium Chloride () 250 mls @ 15 mls/hr IV .[id number] PRN PRN Reason: Saline Flush Sodium Chloride () 1,000 mls @ 150 mls/hr IV .Q6H40M [facility] Last Infusion: 02/17/19 09:37 Dose: 0 mls/hr Documented by: Insulin Human Lispro (Humalog Kwikpen (Bkc)) 0 unit SC TIDAC [facility]; Protocol Last Admin: 02/17/19 12:18 Dose: Not Given Documented by: Levothyroxine Sodium (Synthroid) 137 mcg PO DAILY@0600 [facility] Last Admin: 02/17/19 06:10 Dose: 137 mcg Documented by: Melatonin (Melatonin) 3 mg PO QHS PRN PRN PRN Reason: INSOMNIA Ondansetron HCl (Zofran) 4 mg IV Q8H PRN PRN PRN Reason: NAUSEA/VOMITING Sodium Chloride () 10 - 40 ml IV UD PRN PRN Reason: SALINE FLUSH Tbo-Filgrastim (Granix) 300 mcg SC DAILY [facility] Last Admin: 02/17/19 07:58 Dose: 300 mcg Documented by: Medical Necessity - Tobacco Use Smoking Status: Former smoker Tobacco Use: - Assessment/Plan All Active Problems (Last Reviewed 07/21/18 @ 14:52 by Alba Garcia) Tumor lysis syndrome (Acute) 1. Tumor lysis syndrome, 2/2 multiple myeloma chemo, with associated MARIA D - continue aggressive IV fluids. Oral antidiabetics held. Pt relatively asymptomatic. Watch for volume overload. Replace electrolytes. Consult to Dr. Oro - nephro. BL distal LE rash ongoing. Elevated uric acid - on allopurinol. 2. DMt2 - orals held, continue SSI. last a1c 10.6. 3. COPD - some wheezing on exam but no SOB or hypoxia. Wheezing at baseline. x1 duoneb and schedule if ongoing wheezing or worsening breathing. Continue incentive spirometer. PRN albuterol. 4. Hx DVT - continue outpatient lovenox 5. Neutropenia, pancytopenia - 2/2 chemo - continue granix qd. 6. Hypothyroidism - synthroid DVT ppx: lovenox This patient was seen by Leo Munoz PA-C under the supervision of Dr. Coleman. <Fer Coleman - Last Filed: 02/17/19 15:16> Subjective: Seen and examined. Discussed with oncology as Dr. Glynn. Patient has history of palpable purpura with necrotic center on her arm for which biopsy was done last week. Also has neuropathy of lower extremity in both hands recently. 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 Cryoglobulin level is markedly elevated 5200. Hepatitis B cohort RTC antibody and HIV tests were negative. Patient has monoclonal protein 0.48 g/dL and elevated CRP. Currently patient on Darzelex &?Revlimid Patient is admitted with abnormal lab of acute kidney injury with elevated LDH, uric acid which raised a concern for tumor lysis syndrome although phosphorus and magnesium are low and potassium normal. She does not have evidence of anemia, hypercalcemia but acute kidney injury of BUN/creatinine 22/2.5 cm. Video Producer is consulted. Patient seems mild short of breath on exertion, dyspnea on exertion and generalized weakness. Patient initially had weight loss but her weight has not stabilized last 1 or 2 weeks. - Physical Exam Vitals/I&O's: Vital Signs Temp Pulse Resp BP Pulse Ox 99.3 F H 103 H 14 129/79 H 100 02/17/19 09:20 02/17/19 13:11 02/17/19 13:11 02/17/19 09:20 02/17/19 09:20 Oxygen Delivery Method Room Air Weight: 168 lb 3.403 oz Body Mass Index (BMI) 26.2 Intake and Output for Last 24 Hours 02/15/19 02/16/19 02/17/19 23:59 23:59 23:59 Intake Total 3264.17 / 3264.17 2969.00 / 2969.00 Output Total 2099 / 2099 Balance 3264.17 / 3264.17 869.00 / 869.00 General: Alert, Oriented x3, Cooperative HEENT: Atraumatic, PERRLA, EOMI, Normocephalic Neck: Supple, No JVD, Negative Carotid Bruits Lungs: Clear to auscultation, Normal air movement, Wheezes Cardiovascular: Regular rate, Regular Rhythm, Normal S1, Normal S2, No murmurs Abdomen: Bowel Sounds Present, Soft, Non Tender, Non-Distended Extremities: No edema, Capillary Refill Less than 3 Seconds Skin: No rashes, No breakdown, Rash Present - Bilateral lower extremity skin and subcutaneous tissue hypertrophy with a scar and slight erythema with increased venous hypertension and lymphedema. Musculoskeletal: No Tenderness to Palpation of Joints or Extremities, Arthritic Changes Neurological: Cranial nerves II-XII grossly intact, Deep Tendon Reflexes 2+/4 and Symmetrical, Neuro grossly intact Psych/Mental Status: Normal Affect, Appropriate Laboratory Results 02/16/19 15:17: Sodium 138, Potassium 3.7, Chloride 104, Carbon Dioxide 26.0, Anion Gap 8, BUN 22 H, Creatinine 2.57 H, Estim Creat Clear Calc 19.38, Est GFR (MDRD) Af Amer 24 L, Est GFR (MDRD) Non-Af 20 L, BUN/Creatinine Ratio 8.6 L, Glucose 86, Uric Acid 7.9 H, Calcium 7.1 L, Total Bilirubin 0.50, AST 19, ALT 40, Alkaline Phosphatase 116, Total Protein 6.4, Albumin 2.6 L, Globulin 3.8, Al bumin/Globulin Ratio 0.7 L 02/16/19 17:15: POC Glucose 98 02/16/19 21:30: Urine Color Yellow, Urine Clarity Clear, Urine pH 6.0, Ur Specific [place] 1.010, Urine Protein 15 H, Urine Glucose (UA) Normal, Urine Ketones Negative, Urine Occult Blood 150 H, Urine Nitrite Negative, Urine Bilirubin Negative, Urine Urobilinogen Normal, Ur Leukocyte Esterase Negative, Urine RBC 0-5 SEEN, Urine WBC 0 SEEN, Ur Squamous Epith Cells 0-5 SEEN, Urine Bacteria 0 SEEN, Urine Mucus 0 SEEN 02/16/19 21:40: POC Glucose 67 L 02/17/19 06:33: POC Glucose 121 H 02/17/19 06:35: WBC 1.0 L*, RBC 2.57 L, Hgb 7.9 L, Hct 25.6 L, MCV 99.6 H, MCH 30.7, MCHC 30.9 L, RDW Std Deviation 58.7 H, RDW Coeff of Nathan 16.5 H, Plt Count 114 L, MPV 11.8, Immature Gran % (Auto) 1.000 H, Neut % (Auto) 41.3 L, Lymph % (Auto) 39.4, [place] % (Auto) 9.6, Eos % (Auto) 7.7 H, Baso % (Auto) 1.0, Absolute Neuts (auto) 0.4 L, Absolute Lymphs (auto) 0.41 L, Nucleated RBC % 0, Diff Path Review May foll, Hypochromasia 1+ 02/17/19 06:35: Sodium 138, Potassium 4.1, Chloride 107, Carbon Dioxide 25.0, Anion Gap 6, BUN 20 H, Creatinine 2.41 H, Estim Creat Clear Calc 20.66, Est GFR (MDRD) Af Amer 26 L, Est GFR (MDRD) Non-Af 21 L, BUN/Creatinine Ratio 8.3 L, Glucose 118 H, Uric Acid 6.8 H, Calcium 6.6 L, Phosphorus 2.3 L, Magnesium 1.1 L , Total Bilirubin 0.30, AST 26, ALT 33, Alkaline Phosphatase 105, Total Protein 5.3 L, Albumin 2.1 L, Globulin 3.2, Albumin/Globulin Ratio 0.7 L 02/17/19 06:35: Total Creatine Kinase 54 02/17/19 12:11: POC Glucose 141 H Current Medications Hydrocodone Bitart/Acetaminophen ([place] 5mg-325mg) 1 tablet PO Q6H PRN PRN PRN Reason: Pain Score 4-10/10 Al Hydroxide/Mg Hydroxide (Mylanta Ii) 30 ml PO Q6H PRN PRN PRN Reason: INDIGESTION Last Admin: 02/16/19 21:35 Dose: 30 ml Documented by: Albuterol Sulfate (Ventolin Aerosols) 2.5 mg INHALATION Q4H PRN PRN PRN Reason: SOB &/OR WHEEZING Allopurinol (Zyloprim) 200 mg PO TIDCM [facility] Last Admin: 02/17/19 12:37 Dose: 200 mg Documented by: Bisacodyl (Dulcolax) 5 mg PO DAILY PRN PRN PRN Reason: Constipation Dextrose (D50w Syringe) 0 gm IV X1 PRN; Protocol PRN Reason: Hypoglycemia Enoxaparin Sodium (Lovenox) 70 mg SC Q12 [facility] Last Admin: 02/17/19 07:57 Dose: 70 mg Documented by: Glucagon () 1 mg IM .X1 PRN PRN Reason: Hypoglycemia Sodium Chloride () 250 mls @ 15 mls/hr IV .[id number] PRN PRN Reason: Saline Flush Sodium Chloride () 1,000 mls @ 150 mls/hr IV .Q6H40M [facility] Last Infusion: 02/17/19 14:17 Dose: 150 mls/hr Documented by: Insulin Human Lispro (Humalog Kwikpen (Bkc)) 0 unit SC TIDAC [facility]; Protocol Last Admin: 02/17/19 12:18 Dose: Not Given Documented by: Levothyroxine Sodium (Synthroid) 137 mcg PO DAILY@0600 [facility] Last Admin: 02/17/19 06:10 Dose: 137 mcg Documented by: Melatonin (Melatonin) 3 mg PO QHS PRN PRN PRN Reason: INSOMNIA Ondansetron HCl (Zofran) 4 mg IV Q8H PRN PRN PRN Reason: NAUSEA/VOMITING Potassium Phos/Sodium Phos (Neutra-Phos Packet) 1 packet PO TID [facility] Stop: 02/18/19 06:01 Last Admin: 02/17/19 14:18 Dose: 1 packet Documented by: Sodium Chloride () 10 - 40 ml IV UD PRN PRN Reason: SALINE FLUSH Tbo-Filgrastim (Granix) 300 mcg SC DAILY [facility] Last Admin: 02/17/19 07:58 Dose: 300 mcg Documented by: Assessment/Plan This patient was seen in conjunction with Leo VEGA. I have independently interviewed and examined the patient and reviewed pertinent history, examination findings, laboratory and plan of management. I have reviewed the note and agree with the documented findings with the few additional points. 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 Patient on saline diuresis. Mild improvement in creatinine and BUN. Video Producer is been consulted. UA is bland. Occult blood 150. CK normal. Electrolytes are being monitored and treated as per [facility] Video Producer impression MARIA D differential diagnosis include MPGN with possible mixed Crigler-Alisha syndrome/nephrotoxicity of her elevated/prerenal/ATN/TLS. On allopurinol. Kidney ultrasound ordered. I have discussed my assessment with Leo VEGA and orders have been reviewed. Code Visit Inpatient E&M: 50180 Subs Hosp L2
--- NOTE | 2019-02-17 12:49 | PCM.CONS.GEN ---
Reason for Consult Date of Consultation: 02/17/19 History of Present Illness: The patient is a 68 year old F with a past medical history of multiple myeloma for which she is undergoing chemotherapy. She was found to have a creatinine of 2.1 and she was instructed to come to the emergency department. Previous creatinine was 1.0 in October. She had a similar admission about 2 weeks ago [place] for the same thing and responded well to IV fluid according to the chart and the patient. She has a history of laryngeal cancer and total laryngectomy for this. She her only complaint is chronic fatigue but denies nausea vomiting diarrhea use of NSAIDs at home. She states her appetite was good. She has no complaints otherwise. She was on Revlimid and daratumumab per hematology. She had work-up for cutaneous vasculitis which included negative MAY a few weeks ago per hematology. Neurology was concerned about possible tumor lysis syndrome. She had elevated LDH and uric acid at the outpatient lab. She was also found to be neutropenic. She was started on IV fluids. Her cryoglobulin level was markedly elevated at 5200 but hepatitis B hepatitis C and HIV were negative. Stability rash significantly improved since prednisone was started as per hematology. 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 DVT (deep venous thrombosis) I82.409 Emphysema lung J43.9 GERD (gastroesophageal reflux disease) K21.9 Hyperlipidemia E78.5 Hypothyroidism E03.9 Laryngeal cancer C32.9 Leg ulcer L97.909 Tracheostomy present Z93.0 Type 2 diabetes mellitus E11.9 Dx : 2005 Last exacerbation : DKA : never Hypoglycemic episode : never ER visit : never HTN (hypertension) I10 Allergies No Known Allergies Allergy (Verified 02/16/19 13:04) Home Medications: Ambulatory Orders Medication Instructions Recorded albuterol sulfate HFA 90 2 puff INHALATION Q4H PRN g 01/23/ mcg/actuation aerosol inhaler Enoxaparin Sodium 02/16/19 Glipizide 10 mg PO BID 02/16/19 Hydrocodone/Acetaminophen 1 ea PO Q6H PRN PRN 02/16/19 [Hydrocodon-Acetaminophn 10-325] Levothyroxine Sodium 137 mcg PO DAILY 02/16/19 Lisinopril [Prinivil] 15 mg PO DAILY 02/16/19 Metformin HCl 1,000 mg PO BID 02/16/19 Surgical History: - - total laryngectomy Psychiatric History: No pertinent psych hx [employer] History: No pertinent [employer] history Lives: With Family Smoking Status: Former smoker Tobacco Use: - Alcohol: None Drugs: None Review of Systems Eyes: Reports: - - Review of systems otherwise negative unless noted in HPI Patient Problems: Active and Suspected Problems (Last Reviewed 07/21/18 @ 14:52 by Alba Garcia) Tumor lysis syndrome (Acute) - Physical Exam Vitals/I&O's: Vital Signs Temp Pulse Resp BP Pulse Ox 99.3 F H 94 18 129/79 H 100 02/17/19 09:20 02/17/19 09:20 02/17/19 09:20 02/17/19 09:20 02/17/19 09:20 Oxygen Delivery Method Room Air Weight: 76.3 kg Body Mass Index (BMI) 26.2 Intake and Output for Last 24 Hours 02/15/19 02/16/19 02/17/19 23:59 23:59 23:59 Intake Total 3264.17 / 3264.17 1729.00 / 1729.00 Output Total 1000 / 1000 Balance 3264.17 / 3264.17 729.00 / 729.00 General: Alert, Oriented x3, Cooperative HEENT: Atraumatic, PERRLA, EOMI, Normocephalic Neck: Supple, No JVD, Negative Carotid Bruits, - Lungs: Clear to auscultation, Normal air movement Cardiovascular: Regular rate, No murmurs Abdomen: Bowel Sounds Present, Soft, Non Tender Extremities: No edema, Capillary Refill Less than 3 Seconds Skin: No rashes, No breakdown Musculoskeletal: No Tenderness to Palpation of Joints or Extremities Neurological: Cranial nerves II-XII grossly intact Psych/Mental Status: Normal Affect, Appropriate Laboratory Results 02/16/19 15:17: Sodium 138, Potassium 3.7, Chloride 104, Carbon Dioxide 26.0, Anion Gap 8, BUN 22 H, Creatinine 2.57 H, Estim Creat Clear Calc 19.38, Est GFR (MDRD) Af Amer 24 L, Est GFR (MDRD) Non-Af 20 L, BUN/Creatinine Ratio 8.6 L, Glucose 86, Uric Acid 7.9 H, Calcium 7.1 L, Total Bilirubin 0.50, AST 19, ALT 40, Alkaline Phosphatase 116, Total Protein 6.4, Albumin 2.6 L, Globulin 3.8, Albumin/Globulin Ratio 0.7 L 02/16/19 17:15: POC Glucose 98 02/16/19 21:30: Urine Color Yellow, Urine Clarity Clear, Urine pH 6.0, Ur Specific [place] 1.010, Urine Protein 15 H, Urine Glucose (UA) Normal, Urine Ketones Negative, Urine Occult Blood 150 H, Urine Nitrite Negative, Urine Bilirubin Negative, Urine Urobilinogen Normal, Ur Leukocyte Esterase Negative, Urine RBC 0-5 SEEN, Urine WBC 0 SEEN, Ur Squamous Epith Cells 0-5 SEEN, Urine Bacteria 0 SEEN, Urine Mucus 0 SEEN 02/16/19 21:40: POC Glucose 67 L 02/17/19 06:33: POC Glucose 121 H 02/17/19 06:35: WBC 1.0 L*, RBC 2.57 L, Hgb 7.9 L, Hct 25.6 L, MCV 99.6 H, MCH 30.7, MCHC 30.9 L, RDW Std Deviation 58.7 H, RDW Coeff of Nathan 16.5 H, Plt Count 114 L, MPV 11.8, Immature Gran % (Auto) 1.000 H, Neut % (Auto) 41.3 L, Lymph % (Auto) 39.4, [place] % (Auto) 9.6, Eos % (Auto) 7.7 H, Baso % (Auto) 1.0, Absolute Neuts (auto) 0.4 L, Absolute Lymphs (auto) 0.41 L, Nucleated RBC % 0, Diff Path Review May foll, Hypochromasia 1+ 02/17/19 06:35: Sodium 138, Potassium 4.1, Chloride 107, Carbon Dioxide 25.0, Anion Gap 6, BUN 20 H, Creatinine 2.41 H, Estim Creat Clear Calc 20.66, Est GFR (MDRD) Af Amer 26 L, Est GFR (MDRD) Non-Af 21 L, BUN/Creatinine Ratio 8.3 L, Glucose 118 H, Uric Acid 6.8 H, Calcium 6.6 L, Phosphorus 2.3 L, Magnesium 1.1 L, Total Bilirubin 0.30, AST 26, ALT 33, Alkaline Phosphatase 105, Total Protein 5.3 L, Albumin 2.1 L, Globulin 3.2, Albumin/Globulin Ratio 0.7 L 02/17/19 06:35: Total Creatine Kinase 54 02/17/19 12:11: POC Glucose 141 H Current Medications Hydrocodone Bitart/Acetaminophen ([place] 5mg-325mg) 1 tablet PO Q6H PRN PRN PRN Reason: Pain Score 4-10/10 Al Hydroxide/Mg Hydroxide (Mylanta Ii) 30 ml PO Q6H PRN PRN PRN Reason: INDIGESTION Last Admin: 02/16/19 21:35 Dose: 30 ml Documented by: Albuterol Sulfate (Ventolin Aerosols) 2.5 mg INHALATION Q4H PRN PRN PRN Reason: SOB &/OR WHEEZING Allopurinol (Zyloprim) 200 mg PO TIDCM [facility] Last Admin: 02/17/19 12:37 Dose: 200 mg Documented by: Bisacodyl (Dulcolax) 5 mg PO DAILY PRN PRN PRN Reason: Constipation Dextrose (D50w Syringe) 0 gm IV X1 PRN; Protocol PRN Reason: Hypoglycemia Enoxaparin Sodium (Lovenox) 70 mg SC Q12 [facility] Last Admin: 02/17/19 07:57 Dose: 70 mg Documented by: Glucagon () 1 mg IM .X1 PRN PRN Reason: Hypoglycemia Sodium Chloride () 250 mls @ 15 mls/hr IV .[id number] PRN PRN Reason: Saline Flush Sodium Chloride () 1,000 mls @ 150 mls/hr IV .Q6H40M [facility] Last Infusion: 02/17/19 09:37 Dose: 0 mls/hr Documented by: Insulin Human Lispro (Humalog Kwikpen (Bkc)) 0 unit SC TIDAC [facility]; Protocol Last Admin: 02/17/19 12:18 Dose: Not Given Documented by: Levothyroxine Sodium (Synthroid) 137 mcg PO DAILY@0600 [facility] Last Admin: 02/17/19 06:10 Dose: 137 mcg Documented by: Melatonin (Melatonin) 3 mg PO QHS PRN PRN PRN Reason: INSOMNIA Ondansetron HCl (Zofran) 4 mg IV Q8H PRN PRN PRN Reason: NAUSEA/VOMITING Potassium Phos/Sodium Phos (Neutra-Phos Packet) 1 packet PO TID [facility] Stop: 02/17/19 22:01 Sodium Chloride () 10 - 40 ml IV UD PRN PRN Reason: SALINE FLUSH Tbo-Filgrastim (Granix) 300 mcg SC DAILY [facility] Last Admin: 02/17/19 07:58 Dose: 300 mcg Documented by: Assessment/Plan All Active Problems (Last Reviewed 07/21/18 @ 14:52 by Alba Garcia) Tumor lysis syndrome (Acute) MARIA D differential diagnosis include MPGN with possible mixed cryoglobulinemia syndrome/nephrotoxicity of Revlimid/prerenal/ATN/TLS Elevated uric acid Multiple myeloma on chemotherapy Continue IV fluids. Check a renal ultrasound. If no improvement in renal function will consider renal biopsy to evaluate for possible MPGN. She has good urine output and there is slight improvement in serum creatinine which argues against RPGN associated with cryoglobulinemia. Urine sediment is bland not suggestive of glomerulonephritis though. Recommend to dose allopurinol for renal failure Avoid nephrotoxins Complements to see if C4 is low
--- NOTE | 2019-02-17 13:04 | US_ITS ---
STUDY: RENAL ULTRASOUND - COMPLETE REASON FOR EXAM: Female, 68 years old. Acute kidney injury. TECHNIQUE: Ultrasound evaluation of the kidneys was performed with real-time and static rodriguez-scale imaging. COMPARISON: None. FINDINGS: Aorta: Not visualized. IVC: Not visualized. Right kidney: Measures 11.7 cm. Normal contour. Renal cortical thickness appears normal. No cysts. No masses, stones, or hydronephrosis identified. Left kidney: Measures 10.7 cm. Normal contour. Renal cortical thickness appears normal. No cysts. No masses, stones, or hydronephrosis identified. Bladder: Not visualized. US/Kidney and Bladder IMPRESSION: Unremarkable bilateral kidneys. Nonvisualization of the bladder. Electronically Signed: Chip Barroso, at 15:35 EST Tel , Service support ,
--- NOTE | 2019-02-17 13:09 | CASEMGMT ---
JONNY KIRKLAND assessment: Face to Face with patient for initial transition planning/care coordination assessment. JONNY KIRKLAND introduced self and role at [facility], pt voices understanding and consents to assessment at this time. Pt is sitting up in bed in no distress at this time. Pt is A/Ox4 at this time and answers all questions appropriately at this time. Care providers, pharmacy, and demographics verified/updated at this time. PCP: Jermaine Specialists: Renard/Martha, oncology Preferred [facility]acy: [facility] Insurance: [facility] A/B Prescription Benefit: Pt states has no prescription benefits at this time. Pt states has been paying out of pocket for all meds. Living Will/HPOA: Pt states has a LW/HPOA and is aware that they are not currently on file at [facility] at this time. Pt states that her son, Eleazar Comer, is HPOA. Pt states that Dr. Thomas's office does have a copy of her AD's and she states she would like this RN CM to call and have them fax a copy at this time. Call to Martha's office and AD's to be faxed at this time. Per statistical secretary at office, pt does not look to be set up with any Rx assistance through [facility] at this time. LNOK: Eleazar Comer, son/HPOA Living Arrangements: Pt states that she lives alone in 1 story home and states no concerns at home at this time. Pt is independent with ADL's. Transportation: Pt states drives self and states no transportation concerns at this time. DME/HHC: Pt states has grab bars in shower and states no need for any further DME at this time. Pt states has had HHC in the past but not currently and states no hx of SNF in the past. Pt states no concerns with going home at time of discharge. Pt states is retired. Pt states does not smoke or drink ETOH. Pt states no further concerns/needs at this time. CM to follow for any further discharge planning/needs. Advised pt to ask for CM if any further questions/concerns/needs arise, voices understanding. Pt Goal: Home Plan[place] JONNY KIRKLAND
[2019-02-17] MEDS: Ipratropium/Albuterol Sulfate 3 ML AMPUL.NEB INHALATION (13:11)
[2019-02-17] MEDS: Na Biphos/Potassium Phosphate PACKET 1 PACKET PO ×2 (14:18→21:29)
--- NOTE | 2019-02-17 15:35 | RAD_ITS ---
STUDY: X-RAY CHEST REASON FOR EXAM: Female, 68 years old. Fever TECHNIQUE: PA and lateral views of the chest. COMPARISON: None. FINDINGS: Cardiac silhouette unremarkable. Pulmonary vascularity unremarkable. Aorta unremarkable. No focal airspace opacities. No pleural effusions. Rounded peripherally calcified structure in the right upper quadrant. Osseous structures intact. No pneumothorax. RAD/Chest PA and Lateral IMPRESSION: No acute cardiopulmonary findings. 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 Electronically Signed: Chip Barroso, at 19:48 EST Tel , Service support ,
--- NOTE | 2019-02-17 16:00 | NURSING ---
Per Dr. Thomas's office patient is receiving assistance for medications and office has asked for advanced directives from patient. Patient reports copy at ip attorney's office, no copy on file at Dr. Thomas's office.
[2019-02-17 16:18] LABS: LDH 337 U/L (84-246)
[2019-02-17 16:36] LABS: Bedside Glucose 141 mg/dL (70-110)
[2019-02-17] MEDS: Acetaminophen 325 MG Tablet 650 MG PO (17:51)
[2019-02-17] MEDS: 0.9% Normal Saline 1,000 ML 150 ML IV (19:44)
[2019-02-17 23:11] LABS: Bedside Glucose 220 mg/dL (70-110)
[2019-02-18] VITALS (8 sets, daily range): BP systolic 113–133; BP diastolic 53–63; PULSE 89–111; RESP 14–24; TEMP 36.8–37; O2SAT 94–100
[2019-02-18] MEDS: Albuterol 2.5 MG/3 ML VIAL.NEB. INHALATION (01:49)
[2019-02-18] MEDS: 0.9% Normal Saline 1,000 ML 150 ML IV ×3 (02:24→18:04)
[2019-02-18] MEDS: Levothyroxine 137 MCG Tablet PO (05:32)
[2019-02-18] MEDS: Na Biphos/Potassium Phosphate PACKET 1 PACKET PO (05:32)
[2019-02-18 05:34] LABS: Absolute Lymphocyte Count 0.37 X10^3/uL (0.83-4.51); Absolute Neutrophil Count 0.4 X10^3/uL (2.0-7.7); Basophil# 0.01 X10^3/uL; Eosinophil# 0.09 X10^3/uL; Eosinophils% 9.3 % (0-5); Hematocrit 24.1 % (37-47); Hemoglobin 7.5 g/dL (12.0-15.0); Lymphocyte # 0.37 X10^3/ul (4.0); Lymphocyte % 38.1 % (19-41); Mean Corp Hgb Conc 31.1 g/dL (32-36); Mean Corpuscular Hgb 30.6 pg (27.0-32.0); Mean Corpuscular Volume 98.4 fL (81-99); Mean Platelet Vol. 11.5 fl (6.2-12.0); Monocyte# 0.11 X10^3/uL; Monocyte% 11.3 % (0-10); NRBC Flagged by Analyzer 0 % (0-5); Neutrophil # 0.37 X10^3/uL (2.7-7.7); Neutrophil % 38.2 % (47-70); POSITIVE COUNT YES; POSITIVE DIFFERENTIAL YES; POSITIVE MORPHOLOGY YES; Platelet Count 94 K/mm3 (150-450); RBC Distribution Width CV 16.6 % (11.6-14.6); RBC Distribution Width SD 58.7 fl (35.1-43.9); Red Blood Count 2.45 M/mm3 (4.2-5.4)
[2019-02-18 06:08] LABS: Anion Gap 8 (5-15); BUN 19 mg/dL (7-18); BUN/Creat Ratio 7.7 RATIO (10-20); Calcium,Total 6.3 mg/dL (8.5-10.1); Chloride 111 mmol/L (98-107); Creatinine, Serum 2.46 mg/dL (0.55-1.02); EST Glomerular Filtration Rate 21 mL/min (>60); Est Glom Filt Rate - Afr Amer 25 mL/min (>60); Estimated Creatinine Clearance 20.24 ml/min; Glucose 153 mg/dL (74-106); Magnesium 1.7 mg/dL (1.6-2.6); Phosphorus 2.9 mg/dL (2.5-4.9); Potassium 4.1 mmol/L (3.5-5.1); Sodium Level 141 mmol/L (136-145)
[2019-02-18 06:46] LABS: Bedside Glucose 138 mg/dL (70-110)
[2019-02-18 07:16] LABS: Differential Indicated SCAN CRITERIA MET
[2019-02-18 07:39] LABS: Differential Comment SCANNED; Reactive Lymphocyte 1+
[2019-02-18] MEDS: Enoxaparin 80 MG/0.8 ML Syringe 70 MG SC ×2 (09:03→23:58)
[2019-02-18] MEDS: TBO-FILGRASTIM 300 MCG/0.5 ML ML SC (09:03)
[2019-02-18] MEDS: Allopurinol 100 MG Tablet 200 MG PO (09:10)
[2019-02-18] MEDS: Calcium Carbonate 500 MG Tablet PO ×4 (09:42→23:58)
[2019-02-18] MEDS: Insulin Lispro 100 UNIT/ML INSULN.PEN SC ×2 (11:17→16:36)
[2019-02-18 11:36] LABS: Bedside Glucose 218 mg/dL (70-110)
--- NOTE | 2019-02-18 11:50 | PN_ITS ---
Patient Problems: Active and Suspected Problems (Last Reviewed 07/21/18 @ 14:52 by Alba Garcia) Tumor lysis syndrome (Acute) Subjective: no cp/sob no n/v/d. - Physical Exam Vitals/I&O's: Vital Signs Temp Pulse Resp BP Pulse Ox 98.5 F 89 14 113/61 100 02/18/19 09:10 02/18/19 09:10 02/18/19 09:10 02/18/19 09:10 02/18/19 09:10 Oxygen Delivery Method Room Air Weight: 76.9 kg Body Mass Index (BMI) 26.2 Intake and Output for Last 24 Hours 02/16/19 02/17/19 02/18/19 23:59 23:59 23:59 Intake Total 3264.17 / 3264.17 5528.17 / 5528.17 1580.0 / 1580.0 Output Total 3300 / 3300 1000 / 1000 Balance 3264.17 / 3264.17 2228.17 / 2228.17 580.0 / 580.0 General: Alert, Oriented x3, Cooperative HEENT: Atraumatic, PERRLA, EOMI, Normocephalic Neck: Supple, No JVD, Negative Carotid Bruits Lungs: Clear to auscultation, Normal air movement Cardiovascular: Regular rate, No murmurs Abdomen: Bowel Sounds Present, Soft, Non Tender Extremities: No edema, Capillary Refill Less than 3 Seconds Skin: No rashes, No breakdown Musculoskeletal: No Tenderness to Palpation of Joints or Extremities Neurological: Cranial nerves II-XII grossly intact Psych/Mental Status: Normal Affect, Appropriate Microbiology Past 72 Hours 02/17/19 19:14 Urine, Clean Catch Urine Culture - Preliminary Mixed Gram Pos & Gram Neg Org 02/17/19 17:30 Mucosa - Nasopharyngeal Respiratory Panel (PCR) - Final Parainfluenza 1 Laboratory Results 02/17/19 12:11: POC Glucose 141 H 02/17/19 15:50: Lactate Dehydrogenase 337 H 02/17/19 15:50: Complement C4 Pending 02/17/19 15:50: C-React Prot Ext Range 35.70 H 02/17/19 16:32: POC Glucose 141 H 02/17/19 21:27: POC Glucose 220 H 02/18/19 05:20: WBC 1.0 L*, RBC 2.45 L, Hgb 7.5 L, Hct 24.1 L, MCV 98.4, MCH 30.6, MCHC 31.1 L, RDW Std Deviation 58.7 H, RDW Coeff of Nathan 16.6 H, Plt Count 94 L, MPV 11.5, Immature Gran % (Auto) 2.100 H, Neut % (Auto) 38.2 L, Lymph % (Auto) 38.1, [place] % (Auto) 11.3 H, Eos % (Auto) 9.3 H, Baso % (Auto) 1.0, Absolute Neuts (auto) 0.4 L, Absolute Lymphs (auto) 0.37 L, Nucleated RBC % 0, Differential Comment SCANNED, Diff Path Review July, Reactive Lymphocytes 1+ 02/18/19 05:20: Sodium 141, Potassium 4.1, Chloride 111 H, Carbon Dioxide 22.0, Anion Gap 8, BUN 19 H, Creatinine 2.46 H, Estim Creat Clear Calc 20.24, Est GFR (MDRD) Af Amer 25 L, Est GFR (MDRD) Non-Af 21 L, BUN/Creatinine Ratio 7.7 L, Gl ucose 153 H, Calcium 6.3 L*, Phosphorus 2.9, Magnesium 1.7 02/18/19 06:43: POC Glucose 138 H 02/18/19 11:13: POC Glucose 218 H Current Medications Acetaminophen (Tylenol) 650 mg PO Q6H PRN PRN PRN Reason: FEVER Last Admin: 02/17/19 17:51 Dose: 650 mg Documented by: Hydrocodone Bitart/Acetaminophen ([place] 5mg-325mg) 1 tablet PO Q6H PRN PRN PRN Reason: Pain Score 4-10/10 Al Hydroxide/Mg Hydroxide (Mylanta Ii) 30 ml PO Q6H PRN PRN PRN Reason: INDIGESTION Last Admin: 02/16/19 21:35 Dose: 30 ml Documented by: Albuterol Sulfate (Ventolin Aerosols) 2.5 mg INHALATION Q4H PRN PRN PRN Reason: SOB &/OR WHEEZING Last Admin: 02/18/19 01:49 Dose: 2.5 mg Documented by: Albuterol/Ipratropium (Duoneb) 3 ml INHALATION Q6HWA.RT LAURIE Allopurinol (Zyloprim) 200 mg PO DAILY [facility] Last Admin: 02/18/19 09:10 Dose: 200 mg Documented by: Bisacodyl (Dulcolax) 5 mg PO DAILY PRN PRN PRN Reason: Constipation Calcium Carbonate (Tums) 500 mg PO Q4H [facility] Last Admin: 02/18/19 09:42 Dose: 500 mg Documented by: Dextrose (D50w Syringe) 0 gm IV X1 PRN; Protocol PRN Reason: Hypoglycemia Enoxaparin Sodium (Lovenox) 70 mg SC Q12 [facility] Last Admin: 02/18/19 09:03 Dose: 70 mg Documented by: Glucagon () 1 mg IM .X1 PRN PRN Reason: Hypoglycemia Sodium Chloride () 250 mls @ 15 mls/hr IV .[id number] PRN PRN Reason: Saline Flush Sodium Chloride () 1,000 mls @ 150 mls/hr IV .Q6H40M [facility] Last Admin: 02/18/19 09:03 Dose: 150 mls/hr Documented by: Piperacillin Sod/Tazobactam (Sod 3.375 gm/ Sodium Chloride) 50 mls @ 12.5 mls/hr IV Q8 [facility] Last Infusion: 02/18/19 09:40 Dose: Infused Documented by: Insulin Human Lispro (Humalog Kwikpen (Bkc)) 0 unit SC TIDAC [facility]; Protocol Last Admin: 02/18/19 11:17 Dose: 2 units Documented by: Levothyroxine Sodium (Synthroid) 137 mcg PO DAILY@0600 [facility] Last Admin: 02/18/19 05:32 Dose: 137 mcg Documented by: Melatonin (Melatonin) 3 mg PO QHS PRN PRN PRN Reason: INSOMNIA Ondansetron HCl (Zofran) 4 mg IV Q8H PRN PRN PRN Reason: NAUSEA/VOMITING Sodium Chloride () 10 - 40 ml IV UD PRN PRN Reason: SALINE FLUSH Tbo-Filgrastim (Granix) 300 mcg SC DAILY [facility] Last Admin: 02/18/19 09:03 Dose: 300 mcg Documented by: Medical Necessity - Tobacco Use Smoking Status: Former smoker Tobacco Use: - Assessment/Plan All Active Problems (Last Reviewed 07/21/18 @ 14:52 by Alba Garcia) Tumor lysis syndrome (Acute) KI differential diagnosis include MPGN with possible mixed cryoglobulinemia syndrome/nephrotoxicity of Revlimid/prerenal/ATN/less likely TLS Elevated uric acid Multiple myeloma on chemotherapy Continue IV fluids. Normal renal ultrasound reviewed. will consider renal biopsy to evaluate for possible MPGN. If we will proceed with renal biopsy she will need transfusion of PRBC and I will need to check with hematology to see if cleared because she has a high risk of bleeding. She has good urine output and stable serum creatinine which argues against RPGN associated with cryoglobulinemia. Urine sediment is bland not suggestive of glomerulonephritis also Recommend to dose allopurinol for renal failure Avoid nephrotoxins f/u C4 which is pending
[2019-02-18 11:57] LABS: Pathologist Review Reviewed
[2019-02-18 11:59] LABS: Pathologist Review Reviewed
[2019-02-18] MEDS: Ipratropium/Albuterol Sulfate 3 ML AMPUL.NEB INHALATION ×2 (13:18→18:51)
--- NOTE | 2019-02-18 13:34 | PCM.PROGNOTE ---
<Leo Munoz - Last Filed: 02/18/19 13:34> Patient Problems: Active and Suspected Problems (Last Reviewed 07/21/18 @ 14:52 by Alba Garcia) Tumor lysis syndrome (Acute) Subjective: Pt has no new complaints. She developed a fever last night and has been started on zosyn. She denies subjective fever/chills/night sweats. She is somewhat wheezy but states she is always like this. She has no SOB or cough. She has no sinus congestion or sore throat. No diarrhea/nausea/vomiting. No dysuria. No new skin lesions. LE rashes are healing. - Physical Exam Vitals/I&O's: Vital Signs Temp Pulse Resp BP Pulse Ox 98.5 F 89 14 113/61 100 02/18/19 09:10 02/18/19 09:10 02/18/19 09:10 02/18/19 09:10 02/18/19 09:10 Oxygen Delivery Method Room Air Weight: 169 lb 8.568 oz Body Mass Index (BMI) 26.2 Intake and Output for Last 24 Hours 02/16/19 02/17/19 02/18/19 23:59 23:59 23:59 Intake Total 3264.17 / 3264.17 5528.17 / 5528.17 2139.0 / 2139.0 Output Total 3300 / 3300 2450 / 2450 Balance 3264.17 / 3264.17 2228.17 / 2228.17 -311.0 / -311.0 General: Alert, Oriented x3, Cooperative HEENT: Atraumatic, PERRLA, EOMI, Normocephalic Neck: Supple, No JVD, Negative Carotid Bruits Lungs: Clear to auscultation, Normal air movement, Wheezes Cardiovascular: Regular rate, No murmurs Abdomen: Bowel Sounds Present, Soft, Non Tender Extremities: No edema, Capillary Refill Less than 3 Seconds Skin: No rashes, No breakdown Musculoskeletal: No Tenderness to Palpation of Joints or Extremities Neurological: Cranial nerves II-XII grossly intact Psych/Mental Status: Normal Affect, Appropriate, Alert and oriented to time, place, person, mood and affect Microbiology Past 72 Hours 02/17/19 19:14 Urine, Clean Catch Urine Culture - Preliminary Mixed Gram Pos & Gram Neg Org 02/17/19 17:30 Mucosa - Nasopharyngeal Respiratory Panel (PCR) - Final Parainfluenza 1 Laboratory Results 02/17/19 06:35: Diff Path Review Reviewed 02/17/19 15:50: Lactate Dehydrogenase 337 H 02/17/19 15:50: Complement C4 Pending 02/17/19 15:50: C-React Prot Ext Range 35.70 H 02/17/19 16:32: POC Glucose 141 H 02/17/19 21:27: POC Glucose 220 H 02/18/19 05:20: WBC 1.0 L*, RBC 2.45 L, Hgb 7.5 L, Hct 24.1 L, MCV 98.4, MCH 30.6, MCHC 31.1 L, RDW Std Deviation 58.7 H, RDW Coeff of Nathan 16.6 H, Plt Count 94 L, MPV 11.5, Immature Gran % (Auto) 2.100 H, Neut % (Auto) 38.2 L, Lymph % (Auto) 38.1, [place] % (Auto) 11.3 H, Eos % (Auto) 9.3 H, Baso % (Auto) 1.0, Absolute Neuts (auto) 0.4 L, Absolute Lymphs (auto) 0.37 L, Nucleated RBC % 0, Differential Comment SCANNED, Diff Path Review Reviewed, Reactive Lymphocytes 1+ 02/18/19 05:20: Sodium 141, Potassium 4.1, Chloride 111 H, Carbon Dioxide 22.0, Anion Gap 8, BUN 19 H, Creatinine 2.46 H, Estim Creat Clear Calc 20.24, Est GFR (MDRD) Af Amer 25 L, Est GFR (MDRD) Non-Af 21 L, BUN/Creatinine Ratio 7.7 L, Glucose 153 H, Calcium 6.3 L*, Phosphorus 2.9, Magnesium 1.7 02/18/19 06:43: POC Glucose 138 H 02/18/19 11:13: POC Glucose 218 H Current Medications Acetaminophen (Tylenol) 650 mg PO Q6H PRN PRN PRN Reason: FEVER Last Admin: 02/17/19 17:51 Dose: 650 mg Documented by: Hydrocodone Bitart/Acetaminophen ([place] 5mg-325mg) 1 tablet PO Q6H PRN PRN PRN Reason: Pain Score 4-10/10 Al Hydroxide/Mg Hydroxide (Mylanta Ii) 30 ml PO Q6H PRN PRN PRN Reason: INDIGESTION Last Admin: 02/16/19 21:35 Dose: 30 ml Documented by: Albuterol Sulfate (Ventolin Aerosols) 2.5 mg INHALATION Q4H PRN PRN PRN Reason: SOB &/OR WHEEZING Last Admin: 02/18/19 01:49 Dose: 2.5 mg Documented by: Albuterol/Ipratropium (Duoneb) 3 ml INHALATION Q6HWA.RT [facility] Last Admin: 02/18/19 13:18 Dose: 3 ml Documented by: Allopurinol (Zyloprim) 200 mg PO DAILY [facility] Last Admin: 02/18/19 09:10 Dose: 200 mg Documented by: Bisacodyl (Dulcolax) 5 mg PO DAILY PRN PRN PRN Reason: Constipation Calcium Carbonate (Tums) 500 mg PO Q4H [facility] Last Admin: 02/18/19 13:32 Dose: 500 mg Documented by: Dextrose (D50w Syringe) 0 gm IV X1 PRN; Protocol PRN Reason: Hypoglycemia Enoxaparin Sodium (Lovenox) 70 mg SC Q12 [facility] Last Admin: 02/18/19 09:03 Dose: 70 mg Documented by: Glucagon () 1 mg IM .X1 PRN PRN Reason: Hypoglycemia Sodium Chloride () 250 mls @ 15 mls/hr IV .[id number] PRN PRN Reason: Saline Flush Sodium Chloride () 1,000 mls @ 150 mls/hr IV .Q6H40M [facility] Last Infusion: 02/18/19 09:41 Dose: 0 mls/hr Documented by: Piperacillin Sod/Tazobactam (Sod 3.375 gm/ Sodium Chloride) 50 mls @ 12.5 mls/hr IV Q8 [facility] Last Admin: 02/18/19 13:25 Dose: 12.5 mls/hr Documented by: Insulin Human Lispro (Humalog Reba (Bkc)) 0 unit SC TIDAC [facility]; Protocol Last Admin: 02/18/19 11:17 Dose: 2 units Documented by: Levothyroxine Sodium (Synthroid) 137 mcg PO DAILY@0600 [facility] Last Admin: 02/18/19 05:32 Dose: 137 mcg Documented by: Melatonin (Melatonin) 3 mg PO QHS PRN PRN PRN Reason: INSOMNIA Ondansetron HCl (Zofran) 4 mg IV Q8H PRN PRN PRN Reason: NAUSEA/VOMITING Sodium Chloride () 10 - 40 ml IV UD PRN PRN Reason: SALINE FLUSH Tbo-Filgrastim (Granix) 300 mcg SC DAILY [facility] Last Admin: 02/18/19 09:03 Dose: 300 mcg Documented by: Medical Necessity - Tobacco Use Smoking Status: Former smoker Tobacco Use: - Assessment/Plan All Active Problems (Last Reviewed 07/21/18 @ 14:52 by Alba Garcia) Tumor lysis syndrome (Acute) 1. Tumor lysis syndrome, 2/2 multiple myeloma chemo, with associated MARIA D - continue aggressive IV fluids. Oral antidiabetics held. Pt relatively asymptomatic. Watch for volume overload. Replace electrolytes. Consult to Dr. Oro - nephro. BL distal LE rash ongoing. Elevated uric acid - on allopurinol. 2. Neutropenic fever - pt has no symptoms of acute infection. Continue Zosyn. Check MRSA nasal swab. Likely source is + Parainfluenza on viral panel but with low blood counts will continue Abx. CXR negative. Urine with <1000 Mixed GPCs 3. DMt2 - orals held, continue SSI. last a1c 10.6. 4. COPD - some wheezing on exam but no SOB or hypoxia. Wheezing at baseline. x1 duoneb and schedule if ongoing wheezing or worsening breathing. Continue incentive spirometer. PRN albuterol. 5. Hx DVT - continue outpatient lovenox 6. Neutropenia, pancytopenia - 2/2 chemo - continue granix qd. 7. Hypothyroidism - synthroid DVT ppx: lovenox This patient was seen by Leo Munoz PA-C under the supervision of Dr. Coleman. <Fer Coleman - Last Filed: 02/18/19 14:14> Subjective: CC: Patient had a fever, T-max 100.7 Fahrenheit last night. Started on IV Zosyn yesterday. She did not had fever since commercial intern today. Patient not short of breath but sometimes gets wheezing. Patient knows she has worsening gallbladder when she had gallbladder ultrasound done about 2 months ago in [place]. - Physical Exam Vitals/I&O's: Vital Signs Temp Pulse Resp BP Pulse Ox 98.5 F 95 18 113/61 98 02/18/19 09:10 02/18/19 13:18 02/18/19 13:18 02/18/19 09:10 02/18/19 13:18 Oxygen Delivery Method Room Air Weight: 169 lb 8.568 oz Body Mass Index (BMI) 26.2 Intake and Output for Last 24 Hours 02/16/19 02/17/19 02/18/19 23:59 23:59 23:59 Intake Total 3264.17 / 3264.17 5528.17 / 5528.17 2139.0 / 2139.0 Output Total 3300 / 3300 2450 / 2450 Balance 3264.17 / 3264.17 2228.17 / 2228.17 -311.0 / -311.0 General: Alert, Oriented x3, Cooperative HEENT: Atraumatic, PERRLA, EOMI, Normocephalic, - - Chronic tracheostomy Neck: Supple, No JVD, Negative Carotid Bruits Lungs: Clear to auscultation, No rales, Wheezes Cardiovascular: Regular rate, No murmurs Abdomen: Bowel Sounds Present, Soft, Non Tender, Non-Distended Extremities: No edema, Capillary Refill Less than 3 Seconds Skin: No rashes, No breakdown Musculoskeletal: No Tenderness to Palpation of Joints or Extremities Neurological: Cranial nerves II-XII grossly intact, Deep Tendon Reflexes 2+/4 and Symmetrical, Neuro grossly intact Psych/Mental Status: Normal Affect, Appropriate Microbiology Past 72 Hours 02/17/19 19:14 Urine, Clean Catch Urine Culture - Preliminary Mixed Gram Pos & Gram Neg Org 02/17/19 17:30 Mucosa - Nasopharyngeal Respiratory Panel (PCR) - Final Parainfluenza 1 Laboratory Results 02/17/19 06:35: Diff Path Review Reviewed 02/17/19 15:50: Lactate Dehydrogenase 337 H 02/17/19 15:50: Complement C4 Pending 02/17/19 15:50: C-React Prot Ext Range 35.70 H 02/17/19 16:32: POC Glucose 141 H 02/17/19 21:27: POC Glucose 220 H 02/18/19 05:20: WBC 1.0 L*, RBC 2.45 L, Hgb 7.5 L, Hct 24.1 L, MCV 98.4, MCH 30.6, MCHC 31.1 L, RDW Std Deviation 58.7 H, RDW Coeff of Nathan 16.6 H, Plt Count 94 L, MPV 11.5, Immature Gran % (Auto) 2.100 H, Neut % (Auto) 38.2 L, Lymph % (Auto) 38.1, [place] % (Auto) 11.3 H, Eos % (Auto) 9.3 H, Baso % (Auto) 1.0, Absolute Neuts (auto) 0.4 L, Absolute Lymphs (auto) 0.37 L, Nucleated RBC % 0, Differential Comment SCANNED, Diff Path Review Reviewed, Reactive Lymphocytes 1+ 02/18/19 05:20: Sodium 141, Potassium 4.1, Chloride 111 H, Carbon Dioxide 22.0, Anion Gap 8, BUN 19 H, Creatinine 2.46 H, Estim Creat Clear Calc 20.24, Est GFR (MDRD) Af Amer 25 L, Est GFR (MDRD) Non-Af 21 L, BUN/Creatinine Ratio 7.7 L, Glucose 153 H, Calcium 6.3 L*, Phosphorus 2.9, Magnesium 1.7 02/18/19 06:43: POC Glucose 138 H 02/18/19 11:13: POC Glucose 218 H Current Medications Acetaminophen (Tylenol) 650 mg PO Q6H PRN PRN PRN Reason: FEVER Last Admin: 02/17/19 17:51 Dose: 650 mg Documented by: Hydrocodone Bitart/Acetaminophen ([place] 5mg-325mg) 1 tablet PO Q6H PRN PRN PRN Reason: Pain Score 4-10/10 Al Hydroxide/Mg Hydroxide (Mylanta Ii) 30 ml PO Q6H PRN PRN PRN Reason: INDIGESTION Last Admin: 02/16/19 21:35 Dose: 30 ml Documented by: Albuterol Sulfate (Ventolin Aerosols) 2.5 mg INHALATION Q4H PRN PRN PRN Reason: SOB &/OR WHEEZING Last Admin: 02/18/19 01:49 Dose: 2.5 mg Documented by: Albuterol/Ipratropium (Duoneb) 3 ml INHALATION Q6HWA.RT [facility] Last Admin: 02/18/19 13:18 Dose: 3 ml Documented by: Allopurinol (Zyloprim) 200 mg PO DAILY [facility] Last Admin: 02/18/19 09:10 Dose: 200 mg Documented by: Bisacodyl (Dulcolax) 5 mg PO DAILY PRN PRN PRN Reason: Constipation Calcium Carbonate (Tums) 500 mg PO Q4H [facility] Last Admin: 02/18/19 13:32 Dose: 500 mg Documented by: Dextrose (D50w Syringe) 0 gm IV X1 PRN; Protocol PRN Reason: Hypoglycemia Enoxaparin Sodium (Lovenox) 70 mg SC Q12 [facility] Last Admin: 02/18/19 09:03 Dose: 70 mg Documented by: Glucagon () 1 mg IM .X1 PRN PRN Reason: Hypoglycemia Sodium Chloride () 250 mls @ 15 mls/hr IV .[id number] PRN PRN Reason: Saline Flush Sodium Chloride () 1,000 mls @ 150 mls/hr IV .Q6H40M [facility] Last Infusion: 02/18/19 12:52 Dose: 150 mls/hr Documented by: Piperacillin Sod/Tazobactam (Sod 3.375 gm/ Sodium Chloride) 50 mls @ 12.5 mls/hr IV Q8 [facility] Last Admin: 02/18/19 13:25 Dose: 12.5 mls/hr Documented by: Insulin Human Lispro (Humalog Kwikpen (Bkc)) 0 unit SC TIDAC [facility]; Protocol Last Admin: 02/18/19 11:17 Dose: 2 units Documented by: Levothyroxine Sodium (Synthroid) 137 mcg PO DAILY@0600 [facility] Last Admin: 02/18/19 05:32 Dose: 137 mcg Documented by: Melatonin (Melatonin) 3 mg PO QHS PRN PRN PRN Reason: INSOMNIA Ondansetron HCl (Zofran) 4 mg IV Q8H PRN PRN PRN Reason: NAUSEA/VOMITING Sodium Chloride () 10 - 40 ml IV UD PRN PRN Reason: SALINE FLUSH Tbo-Filgrastim (Granix) 300 mcg SC DAILY [facility] Last Admin: 02/18/19 09:03 Dose: 300 mcg Documented by: Assessment/Plan This patient was seen in conjunction with Leo VEGA. I have independently interviewed and examined the patient and reviewed pertinent history, examination findings, laboratory and plan of management. I have reviewed the note and agree with the documented findings with the few additional points. 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 Patient on saline diuresis. Mild improvement in creatinine and BUN. Decal Cutter is been consulted. UA is bland. Occult blood 150. CK normal. Electrolytes are being monitored and treated as per [facility] impression MARIA D differential diagnosis include MPGN with possible mixed cryoglobulinemia syndrome/nephrotoxicity of her elevated/prerenal/ATN/TLS. On allopurinol. Kidney ultrasound ordered. 02/18/19: Renal ultrasound reported unremarkable bilateral kidneys. Nonvisualization of the bladder. 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 Patient knows about the history as she had right upper quadrant sonogram done about a month ago in [place] and was told about possible gallbladder. She also knows that she is to follow-up with surgeon for elective cholecystectomy. Urine culture reported as mixed gram-positive and gram later carries a history of contamination. Respiratory panel parainfluenza 1. Blood cultures x2 are pending. She was started on IV Zosyn on 02/17/2019. Will screen is ordered. Patient is still neutropenic, WBC count 1000, ANC 0.4 thousand, H&H 7.5/24 platelet count 94,000. Calcium low 6.3. Calcium gluconate replaced. Phosphorus 2.9, magnesium 1.7. Kidney function did not show worsening, BUN/creatinine 19/2.46. Neurologist is following. I have discussed my assessment with Leo VEGA and orders have been reviewed. Clinical Impression(s) from Imaging Studies Renal Ultrasound 02/17/19 13:04 IMPRESSION: Unremarkable bilateral kidneys. Nonvisualization of the bladder. Electronically Signed: Chip Barroso, at 15:35 EST Tel , Service support , Chest X-Ray 02/17/19 15:35 IMPRESSION: No acute cardiopulmonary findings. 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 Electronically Signed: Chip Barroso, at 19:48 EST Tel , Service support , Microbiology Past 72 Hours 02/17/19 19:14 Urine, Clean Catch Urine Culture - Preliminary Mixed Gram Pos & Gram Neg Org 02/17/19 17:30 Mucosa - Nasopharyngeal Respiratory Panel (PCR) - Final Parainfluenza 1 Laboratory Results 02/17/19 06:35: Diff Path Review Reviewed 02/17/19 15:50: Lactate Dehydrogenase 337 H 02/17/19 15:50: Complement C4 Pending 02/17/19 15:50: C-React Prot Ext Range 35.70 H 02/17/19 16:32: POC Glucose 141 H 02/17/19 21:27: POC Glucose 220 H 02/18/19 05:20: WBC 1.0 L*, RBC 2.45 L, Hgb 7.5 L, Hct 24.1 L, MCV 98.4, MCH 30.6, MCHC 31.1 L, RDW Std Deviation 58.7 H, RDW Coeff of Nathan 16.6 H, Plt Count 94 L, MPV 11.5, Immature Gran % (Auto) 2.100 H, Neut % (Auto) 38.2 L, Lymph % (Auto) 38.1, [place] % (Auto) 11.3 H, Eos % (Auto) 9.3 H, Baso % (Auto) 1.0, Absolute Neuts (auto) 0.4 L, Absolute Lymphs (auto) 0.37 L, Nucleated RBC % 0, Differential Comment SCANNED, Diff Path Review Reviewed, Reactive Lymphocytes 1+ 02/18/19 05:20: Sodium 141, Potassium 4.1, Chloride 111 H, Carbon Dioxide 22.0, Anion Gap 8, BUN 19 H, Creatinine 2.46 H, Estim Creat Clear Calc 20.24, Est GFR (MDRD) Af Amer 25 L, Est GFR (MDRD) Non-Af 21 L, BUN/Creatinine Ratio 7.7 L, Glucose 153 H, Calcium 6.3 L*, Phosphorus 2.9, Magnesium 1.7 02/18/19 06:43: POC Glucose 138 H 02/18/19 11:13: POC Glucose 218 H Code Visit Inpatient E&M: 58170 Subs Hosp L3
--- NOTE | 2019-02-18 13:58 | CASEMGMT ---
As per admitting RN, pt does not have a LW. Pt has POA and it is her son Eleazar Comer, is unable to bring the documents to the hospital at this time. HUGO Urena
[2019-02-18 16:36] LABS: Bedside Glucose 160 mg/dL (70-110)
--- NOTE | 2019-02-18 16:36 | PN_ITS ---
Patient Problems: Active and Suspected Problems (Last Reviewed 07/21/18 @ 14:52 by Alba Garcia) Tumor lysis syndrome (Acute) Subjective: patient seen and examined earlier today. She continued to feel well and had no complaints. Was eating breakfast at the time I saw her. No subjective sense of fluid retention or swelling. No nausea. Urinating liberally. No gross hematuria or dysuria. - Physical Exam Vitals/I&O's: Vital Signs Temp Pulse Resp BP Pulse Ox 98.2 F 99 16 133/62 H 100 02/18/19 15:08 02/18/19 15:08 02/18/19 15:08 02/18/19 15:08 02/18/19 15:08 Oxygen Delivery Method Room Air Weight: 76.9 kg Body Mass Index (BMI) 26.2 Intake and Output for Last 24 Hours 02/16/19 02/17/19 02/18/19 23:59 23:59 23:59 Intake Total 3264.17 / 3264.17 5528.17 / 5528.17 2139.0 / 2139.0 Output Total 3300 / 3300 2450 / 2450 Balance 3264.17 / 3264.17 2228.17 / 2228.17 -311.0 / -311.0 Lungs: Clear to auscultation Cardiovascular: Regular Rhythm Abdomen: Soft, Non Tender Extremities: - - No swelling. Microbiology Past 72 Hours 02/17/19 19:14 Urine, Clean Catch Urine Culture - Preliminary Mixed Gram Pos & Gram Neg Org 02/17/19 17:30 Mucosa - Nasopharyngeal Respiratory Panel (PCR) - Final Parainfluenza 1 Laboratory Results 02/17/19 06:35: Diff Path Review Reviewed 02/17/19 15:50: Complement C4 Pending 02/17/19 15:50: C-React Prot Ext Range 35.70 H 02/17/19 16:32: POC Glucose 141 H 02/17/19 21:27: POC Glucose 220 H 02/18/19 05:20: WBC 1.0 L*, RBC 2.45 L, Hgb 7.5 L, Hct 24.1 L, MCV 98.4, MCH 30.6, MCHC 31.1 L, RDW Std Deviation 58.7 H, RDW Coeff of Nathan 16.6 H, Plt Count 94 L, MPV 11.5, Immature Gran % (Auto) 2.100 H, Neut % (Auto) 38.2 L, Lymph % (Auto) 38.1, [place] % (Auto) 11.3 H, Eos % (Auto) 9.3 H, Baso % (Auto) 1.0, Absolute Neuts (auto) 0.4 L, Absolute Lymphs (auto) 0.37 L, Nucleated RBC % 0, Differential Comment SCANNED, Diff Path Review Reviewed, Reactive Lymphocytes 1+ 02/18/19 05:20: Sodium 141, Potassium 4.1, Chloride 111 H, Carbon Dioxide 22.0, Anion Gap 8, BUN 19 H, Creatinine 2.46 H, Estim Creat Clear Calc 20.24, Est GFR (MDRD) Af Amer 25 L, Est GFR (MDRD) Non-Af 21 L, BUN/Creatinine Ratio 7.7 L, Glucose 153 H, Calcium 6.3 L*, Phosphorus 2.9, Magnesium 1.7 02/18/19 06:43: POC Glucose 138 H 02/18/19 11:13: POC Glucose 218 H 02/18/19 16:32: POC Glucose Pending Current Medications Acetaminophen (Tylenol) 650 mg PO Q6H PRN PRN PRN Reason: FEVER Last Admin: 02/17/19 17:51 Dose: 650 mg Documented by: Hydrocodone Bitart/Acetaminophen ([place] 5mg-325mg) 1 tablet PO Q6H PRN PRN PRN Reason: Pain Score 4-10/10 Al Hydroxide/Mg Hydroxide (Mylanta Ii) 30 ml PO Q6H PRN PRN PRN Reason: INDIGESTION Last Admin: 02/16/19 21:35 Dose: 30 ml Documented by: Albuterol Sulfate (Ventolin Aerosols) 2.5 mg INHALATION Q4H PRN PRN PRN Reason: SOB &/OR WHEEZING Last Admin: 02/18/19 01:49 Dose: 2.5 mg Documented by: Albuterol/Ipratropium (Duoneb) 3 ml INHALATION Q6HWA.RT [facility] Last Admin: 02/18/19 13:18 Dose: 3 ml Documented by: Allopurinol (Zyloprim) 200 mg PO DAILY [facility] Last Admin: 02/18/19 09:10 Dose: 200 mg Documented by: Bisacodyl (Dulcolax) 5 mg PO DAILY PRN PRN PRN Reason: Constipation Calcium Carbonate (Tums) 500 mg PO Q4H [facility] Last Admin: 02/18/19 13:32 Dose: 500 mg Documented by: Dextrose (D50w Syringe) 0 gm IV X1 PRN; Protocol PRN Reason: Hypoglycemia Enoxaparin Sodium (Lovenox) 70 mg SC Q12 [facility] Last Admin: 02/18/19 09:03 Dose: 70 mg Documented by: Glucagon () 1 mg IM .X1 PRN PRN Reason: Hypoglycemia Sodium Chloride () 250 mls @ 15 mls/hr IV .[id number] PRN PRN Reason: Saline Flush Sodium Chloride () 1,000 mls @ 150 mls/hr IV .Q6H40M [facility] Last Infusion: 02/18/19 12:52 Dose: 150 mls/hr Documented by: Piperacillin Sod/Tazobactam (Sod 3.375 gm/ Sodium Chloride) 50 mls @ 12.5 mls/hr IV Q8 [facility] Last Admin: 02/18/19 13:25 Dose: 12.5 mls/hr Documented by: Insulin Human Lispro (Humalog Kwikpen (Bkc)) 0 unit SC TIDAC [facility]; Protocol Last Admin: 02/18/19 11:17 Dose: 2 units Documented by: Levothyroxine Sodium (Synthroid) 137 mcg PO DAILY@0600 [facility] Last Admin: 02/18/19 05:32 Dose: 137 mcg Documented by: Melatonin (Melatonin) 3 mg PO QHS PRN PRN PRN Reason: INSOMNIA Ondansetron HCl (Zofran) 4 mg IV Q8H PRN PRN PRN Reason: NAUSEA/VOMITING Sodium Chloride () 10 - 40 ml IV UD PRN PRN Reason: SALINE FLUSH Tbo-Filgrastim (Granix) 300 mcg SC DAILY [facility] Last Admin: 02/18/19 09:03 Dose: 300 mcg Documented by: Medical Necessity - Tobacco Use Smoking Status: Former smoker Tobacco Use: - Assessment/Plan All Active Problems (Last Reviewed 07/21/18 @ 14:52 by Alba Garcia) Tumor lysis syndrome (Acute) 1) Acute kidney injury. Assessment: -Patient's baseline serum creatinine on 11/17/2018 was 1.06 mg/dl. -Patient's 24-hour urine collection at baseline on 11/21 demonstrated 0.27 g of protein per 24 hours. Of that 0.06 g was monoclonal protein. -She has had 6 doses of daratumumab along with Revlimid to date. No previous evidence of tumor lysis. -appreciate nephrology recommendations. -No appreciable change in serum BUN/creatinine with continued hydration. Plan: -Continue hydration. -Electrolyte replacement. -Continue to monitor electrolytes including serum creatinine, potassium, uric acid, magnesium, phosphorus as well as LDH. -Check coags for renal biopsy. -Will need to hold Lovenox at least 12 hours prior to biopsy. 2) Neutropenia. Assessment: -Became febrile overnight. -Started on broad-spectrum antibiotic. -Afebrile now. Plan: -Granix until ANC improves. -Can stop antibiotics once neutrophil count recovers and blood cultures negative ?48 hours or more.
[2019-02-18 18:43] LABS: International Normalized Ratio 1.2; Prothrombin Time (Protime)PT. 14.5 SECONDS (11.7-14.9)
[2019-02-18 18:44] LABS: Partial Thromboplast Time 50.7 Seconds (24.1-36.2)
[2019-02-19 00:25] LABS: Bedside Glucose 168 mg/dL (70-110)
[2019-02-19] MEDS: 0.9% Normal Saline 1,000 ML 150 ML IV ×3 (00:53→13:13)
[2019-02-19] MEDS: Calcium Carbonate 500 MG Tablet PO ×6 (03:08→22:42)
[2019-02-19 03:10] VITALS: BP 128/60; PULSE 92; RESP 18; TEMP 36.9; O2SAT 92
[2019-02-19] MEDS: Levothyroxine 137 MCG Tablet PO (06:27)
[2019-02-19] MEDS: Ipratropium/Albuterol Sulfate 3 ML AMPUL.NEB INHALATION (06:45)
[2019-02-19 06:46] VITALS: PULSE 86; RESP 18; O2SAT 96
[2019-02-19 06:46] LABS: Bedside Glucose 128 mg/dL (70-110)
[2019-02-19 06:59] LABS: Absolute Lymphocyte Count 0.55 X10^3/uL (0.83-4.51); Absolute Neutrophil Count 0.6 X10^3/uL (2.0-7.7); Basophil# 0.02 X10^3/uL; Basophil% 1.4 % (0-1); Eosinophil# 0.11 X10^3/uL; Hematocrit 25.2 % (37-47); Lymphocyte # 0.55 X10^3/ul (4.0); Lymphocyte % 39.9 % (19-41); Mean Corp Hgb Conc 31.7 g/dL (32-36); Mean Corpuscular Hgb 31.4 pg (27.0-32.0); Mean Corpuscular Volume 98.8 fL (81-99); Mean Platelet Vol. 11.9 fl (6.2-12.0); Monocyte% 7.2 % (0-10); NRBC Flagged by Analyzer 0 % (0-5); Neutrophil # 0.56 X10^3/uL (2.7-7.7); Neutrophil % 40.6 % (47-70); POSITIVE COUNT YES; POSITIVE DIFFERENTIAL YES; POSITIVE MORPHOLOGY YES; Platelet Count 119 K/mm3 (150-450); RBC Distribution Width CV 16.7 % (11.6-14.6); RBC Distribution Width SD 60.4 fl (35.1-43.9); Red Blood Count 2.55 M/mm3 (4.2-5.4)
[2019-02-19 07:11] LABS: White Blood Count 1.4 K/mm3 (4.4-11.0)
[2019-02-19 07:12] LABS: Differential Indicated SCAN CRITERIA MET
[2019-02-19 07:33] LABS: ALB/GLOB Ratio 0.6 RATIO (0.9-2.4); AST(SGOT) 32 U/L (15-37); Alanine Aminotransfer ALT/SGPT 53 U/L (13-56); Alkaline Phosphatase 128 U/L (45-117); Anion Gap 7 (5-15); BUN 17 mg/dL (7-18); BUN/Creat Ratio 7.5 RATIO (10-20); Calcium,Total 6.8 mg/dL (8.5-10.1); Chloride 113 mmol/L (98-107); Creatinine, Serum 2.28 mg/dL (0.55-1.02); EST Glomerular Filtration Rate 23 mL/min (>60); Est Glom Filt Rate - Afr Amer 28 mL/min (>60); Estimated Creatinine Clearance 21.84 ml/min; Globulin 3.3 g/dL (2.2-4.2); Glucose 123 mg/dL (74-106); Magnesium 1.6 mg/dL (1.6-2.6); Potassium 4.3 mmol/L (3.5-5.1); Protein, Total 5.3 g/dL (6.4-8.2); Sodium Level 142 mmol/L (136-145)
[2019-02-19] MEDS: TBO-FILGRASTIM 300 MCG/0.5 ML ML SC (07:46)
[2019-02-19] MEDS: Allopurinol 100 MG Tablet 200 MG PO (07:46)
[2019-02-19] MEDS: Enoxaparin 80 MG/0.8 ML Syringe 70 MG SC (07:46)
[2019-02-19 08:45] VITALS: BP 119/53; PULSE 99; RESP 18; TEMP 36.8; O2SAT 98
[2019-02-19] MEDS: Insulin Lispro 100 UNIT/ML INSULN.PEN SC ×2 (11:28→16:51)
[2019-02-19 11:36] LABS: Bedside Glucose 253 mg/dL (70-110)
--- NOTE | 2019-02-19 13:13 | PN_ITS ---
Patient Problems: Active and Suspected Problems (Last Reviewed 07/21/18 @ 14:52 by Alba Garcia) Tumor lysis syndrome (Acute) Subjective: NO Shortness of breath no nausea no vomiting no diarrhea no chest pain no complaints. - Physical Exam Vitals/I&O's: Vital Signs Temp Pulse Resp BP Pulse Ox 98.3 F 99 18 119/53 L 98 02/19/19 08:45 02/19/19 08:45 02/19/19 08:45 02/19/19 08:45 02/19/19 08:45 Oxygen Delivery Method Room Air Weight: 76.5 kg Body Mass Index (BMI) 26.2 Intake and Output for Last 24 Hours 02/17/19 02/18/19 02/19/19 23:59 23:59 23:59 Intake Total 5528.17 / 5528.17 3419.0 / 3769.0 3082.5 / 3082.5 Output Total 3300 / 3300 3450 / 4450 2900 / 2900 Balance 2228.17 / 2228.17 -31.0 / -681.0 182.5 / 182.5 General: Alert, Oriented x3, Cooperative HEENT: Atraumatic, PERRLA, EOMI, Normocephalic Neck: Supple, No JVD, Negative Carotid Bruits Lungs: Clear to auscultation, Normal air movement Cardiovascular: Regular rate, No murmurs Abdomen: Bowel Sounds Present, Soft, Non Tender Extremities: No edema, Capillary Refill Less than 3 Seconds Skin: No rashes, No breakdown Musculoskeletal: No Tenderness to Palpation of Joints or Extremities Neurological: Cranial nerves II-XII grossly intact Psych/Mental Status: Normal Affect, Appropriate Microbiology Past 72 Hours 02/17/19 19:14 Urine, Clean Catch Urine Culture - Final Mixed Gram Pos & Gram Neg Org 02/17/19 17:30 Mucosa - Nasopharyngeal Respiratory Panel (PCR) - Final Parainfluenza 1 Laboratory Results 02/17/19 15:50: Complement C4 35 02/18/19 16:32: POC Glucose 160 H 02/18/19 18:20: PT 14.5, INR 1.2, APTT 50.7 H 02/19/19 00:11: POC Glucose 168 H 02/19/19 06:30: WBC 1.4 L*, RBC 2.55 L, Hgb 8.0 L, Hct 25.2 L, MCV 98.8, MCH 31.4, MCHC 31.7 L, RDW Std Deviation 60.4 H, RDW Coeff of Nathan 16.7 H, Plt Count 119 L, MPV 11.9, Immature Gran % (Auto) 2.900 H, Neut % (Auto) 40.6 L, Lymph % (Auto) 39.9, [place] % (Auto) 7.2, Eos % (Auto) 8.0 H, Baso % (Auto) 1.4 H, Absolute Neuts (auto) 0.6 L, Absolute Lymphs (auto) 0.55 L, Nucleated RBC % 0, Diff Path Review July02/19/19 06:30: Sodium 142, Potassium 4.3, Chloride 113 H, Carbon Dioxide 22.0, Anion Gap 7, BUN 17, Creatinine 2.28 H, Estim Creat Clear Calc 21.84, Est GFR (MDRD) Af Amer 28 L, Est GFR (MDRD) Non-Af 23 L, BUN/Creatinine Ratio 7.5 L, Glucose 123 H, Calcium 6.8 L, Magnesium 1.6, Total Bilirubin 0.50, AST 32, ALT 53, Alkaline Phosphatase 128 H, Total Protein 5.3 L, Albumin 2.0 L, Globulin 3.3, Albumin/Globulin Ratio 0.6 L 02/19/19 06:31: POC Glucose 128 H 02/19/19 11:26: POC Glucose 253 H Current Medications Acetaminophen (Tylenol) 650 mg PO Q6H PRN PRN PRN Reason: FEVER Last Admin: 02/17/19 17:51 Dose: 650 mg Documented by: Hydrocodone Bitart/Acetaminophen ([place] 5mg-325mg) 1 tablet PO Q6H PRN PRN PRN Reason: Pain Score 4-10/10 Al Hydroxide/Mg Hydroxide (Mylanta Ii) 30 ml PO Q6H PRN PRN PRN Reason: INDIGESTION Last Admin: 02/16/19 21:35 Dose: 30 ml Documented by: Albuterol Sulfate (Ventolin Aerosols) 2.5 mg INHALATION Q4H PRN PRN PRN Reason: SOB &/OR WHEEZING Last Admin: 02/18/19 01:49 Dose: 2.5 mg Documented by: Albuterol/Ipratropium (Duoneb) 3 ml INHALATION Q6HWA.RT [facility] Last Admin: 02/19/19 06:45 Dose: 3 ml Documented by: Allopurinol (Zyloprim) 200 mg PO DAILY [facility] Last Admin: 02/19/19 07:46 Dose: 200 mg Documented by: Bisacodyl (Dulcolax) 5 mg PO DAILY PRN PRN PRN Reason: Constipation Calcium Carbonate (Tums) 500 mg PO Q4H [facility] Last Admin: 02/19/19 09:30 Dose: 500 mg Documented by: Dextrose (D50w Syringe) 0 gm IV X1 PRN; Protocol PRN Reason: Hypoglycemia Enoxaparin Sodium (Lovenox) 70 mg SC DAILY [facility] Glucagon () 1 mg IM .X1 PRN PRN Reason: Hypoglycemia Sodium Chloride () 250 mls @ 15 mls/hr IV .[id number] PRN PRN Reason: Saline Flush Sodium Chloride () 1,000 mls @ 150 mls/hr IV .Q6H40M [facility] Last Admin: 02/19/19 07:11 Dose: 150 mls/hr Documented by: Piperacillin Sod/Tazobactam (Sod 3.375 gm/ Sodium Chloride) 50 mls @ 12.5 mls/hr IV Q8 [facility] Last Infusion: 02/19/19 10:03 Dose: Infused Documented by: Magnesium Sulfate 2 gm/ Sodium (Chloride) 104 mls @ 52 mls/hr IV X1 ONE Stop: 02/19/19 14:33 Insulin Human Lispro (Humalog Kwikpen (Bkc)) 0 unit SC TIDAC [facility]; Protocol Last Admin: 02/19/19 11:28 Dose: 2 units Documented by: Levothyroxine Sodium (Synthroid) 137 mcg PO DAILY@0600 [facility] Last Admin: 02/19/19 06:27 Dose: 137 mcg Documented by: Melatonin (Melatonin) 3 mg PO QHS PRN PRN PRN Reason: INSOMNIA Ondansetron HCl (Zofran) 4 mg IV Q8H PRN PRN PRN Reason: NAUSEA/VOMITING Sodium Chloride () 10 - 40 ml IV UD PRN PRN Reason: SALINE FLUSH Tbo-Filgrastim (Granix) 300 mcg SC DAILY [facility] Last Admin: 02/19/19 07:46 Dose: 300 mcg Documented by: Medical Necessity - Tobacco Use Smoking Status: Former smoker Tobacco Use: - Assessment/Plan All Active Problems (Last Reviewed 07/21/18 @ 14:52 by Alba Garcia) Tumor lysis syndrome (Acute) KI differential diagnosis include MPGN with possible mixed cryoglobulinemia syndrome/nephrotoxicity of Revlimid/prerenal/ATN/less likely TLS Elevated uric acid Multiple myeloma on chemotherapy Continue IV fluids. will consider renal biopsy. If we will proceed with renal biopsy she will need transfusion of PRBC and I will need to check with hematology to see if cleared because she has a high risk of bleeding. Serum creatinine is 2.2 is slightly better less prerenal. The patient received Lovenox twice daily instead of daily for a few days will avoid renal biopsy to [facility] and consider IT on Saturday significant improvement in renal function. Lovenox was changed to once daily today. Can resume Lovenox twice daily for DVT treatment once GFR is more than 30. C4 was high normal. Serologies ordered will f/u. Avoid nephrotoxins D/w dr. Coleman
[2019-02-19 14:37] VITALS: BP 125/59; PULSE 106; RESP 16; TEMP 36.9; O2SAT 96
--- NOTE | 2019-02-19 15:40 | NURSING ---
ALL ASSESSMENTS AND VITAL SIGNS CHARTED BY STUDENT NURSES ON 02/19/19 WAS APPROVED AND VERIFIED BY Yandel WILLIAMSON, CLINICAL INSTRUCTOR.
--- NOTE | 2019-02-19 15:44 | PCM.PN.HOSP ---
Patient Problems: Active and Suspected Problems (Last Reviewed 07/21/18 @ 14:52 by Alba Garcia) Tumor lysis syndrome (Acute) Subjective: CC: Follow-up for acute kidney injury with recent chemotherapy and pancytopenia Seen and examined. Overall, patient feels better with regards to generalized weakness, appetite. Patient denies any shortness of breath. Patient asked for labs and was told about recent labs and clinical findings. Vitals/I&O's: Vital Signs Temp Pulse Resp BP Pulse Ox 98.4 F 106 H 16 125/59 H 96 02/19/19 14:37 02/19/19 14:37 02/19/19 14:37 02/19/19 14:37 02/19/19 14:37 Oxygen Delivery Method Room Air Weight: 168 lb 10.458 oz Body Mass Index (BMI) 26.2 Intake and Output for Last 24 Hours 02/17/19 02/18/19 02/19/19 23:59 23:59 23:59 Intake Total 5528.17 / 5528.17 3419.0 / 3769.0 4099.0 / 4099.0 Output Total 3300 / 3300 3450 / 4450 2900 / 2900 Balance 2228.17 / 2228.17 -31.0 / -681.0 1199.0 / 1199.0 General: Alert, Oriented x3, Cooperative HEENT: Atraumatic, PERRLA, EOMI, Normocephalic Neck: Supple, No JVD, Negative Carotid Bruits, - - Permanent tracheostomy Lungs: No rhonchi, No wheeze, No rales, Diminished - Air entry is diminished bilateral lung bases Cardiovascular: Regular rate, Regular Rhythm, Normal S1, Normal S2, No murmurs Abdomen: Bowel Sounds Present, Soft, Non Tender, Non-Distended Extremities: No edema, Capillary Refill Less than 3 Seconds Skin: No rashes, No breakdown Musculoskeletal: No Tenderness to Palpation of Joints or Extremities Neurological: Cranial nerves II-XII grossly intact Psych/Mental Status: Normal Affect, Appropriate Microbiology Past 72 Hours 02/18/19 14:58 Swab (Method) Nasal Screen MRSA/MSSA - Final 02/17/19 19:14 Urine, Clean Catch Urine Culture - Final Mixed Gram Pos & Gram Neg Org 02/17/19 17:30 Mucosa - Nasopharyngeal Respiratory Panel (PCR) - Final Parainfluenza 1 Laboratory Results 02/17/19 15:50: Complement C4 35 02/18/19 16:32: POC Glucose 160 H 02/18/19 18:20: PT 14.5, INR 1.2, APTT 50.7 H 02/19/19 00:11: POC Glucose 168 H 02/19/19 06:30: WBC 1.4 L*, RBC 2.55 L, Hgb 8.0 L, Hct 25.2 L, MCV 98.8, MCH 31.4, MCHC 31.7 L, RDW Std Deviation 60.4 H, RDW Coeff of Nathan 16.7 H, Plt Count 119 L, MPV 11.9, Immature Gran % (Auto) 2.900 H, Neut % (Auto) 40.6 L, Lymph % (Auto) 39.9, [place] % (Auto) 7.2, Eos % (Auto) 8.0 H, Baso % (Auto) 1.4 H, Absolute Neuts (auto) 0.6 L, Absolute Lymphs (auto) 0.55 L, Nucleated RBC % 0, Diff Path Review July02/19/19 06:30: Sodium 142, Potassium 4.3, Chloride 113 H, Carbon Dioxide 22.0, Anion Gap 7, BUN 17, Creatinine 2.28 H, Estim Creat Clear Calc 21.84, Est GFR (MDRD) Af Amer 28 L, Est GFR (MDRD) Non-Af 23 L, BUN/Creatinine Ratio 7.5 L, Glucose 123 H, Calcium 6.8 L, Magnesium 1.6, Total Bilirubin 0.50, AST 32, ALT 53, Alkaline Phosphatase 128 H, Total Protein 5.3 L, Albumin 2.0 L, Globulin 3.3, Albumin/Globulin Ratio 0.6 L 02/19/19 06:31: POC Glucose 128 H 02/19/19 11:26: POC Glucose 253 H 02/19/19 14:00: MAY Screen Pending, JINA-1 Antibody Pending, SS-A/Ro IgG Antibody Pending, SS-B/La IgG Antibody Pending, Sm (Haile) Antibody Pending, DRESS CUTTER Antibody Pending, Scl-70 Scleroderma Ab Pending, Double Strand DNA Ab Pending, Centromere B Antibody Pending 02/19/19 14:00: c-ANCA Antibody Pending, p-ANCA Antibody Pending 02/19/19 14:00: Glomerular Base Memb Ab Pending, Complement C3 Pending Current Medications Acetaminophen (Tylenol) 650 mg PO Q6H PRN PRN PRN Reason: FEVER Last Admin: 02/17/19 17:51 Dose: 650 mg Documented by: Hydrocodone Bitart/Acetaminophen ([place] 5mg-325mg) 1 tablet PO Q6H PRN PRN PRN Reason: Pain Score 4-10/10 Al Hydroxide/Mg Hydroxide (Mylanta Ii) 30 ml PO Q6H PRN PRN PRN Reason: INDIGESTION Last Admin: 02/16/19 21:35 Dose: 30 ml Documented by: Albuterol Sulfate (Ventolin Aerosols) 2.5 mg INHALATION Q4H PRN PRN PRN Reason: SOB &/OR WHEEZING Last Admin: 02/18/19 01:49 Dose: 2.5 mg Documented by: Albuterol/Ipratropium (Duoneb) 3 ml INHALATION Q6HWA.RT [facility] Last Admin: 02/19/19 13:15 Dose: Not Given Documented by: Allopurinol (Zyloprim) 200 mg PO DAILY [facility] Last Admin: 02/19/19 07:46 Dose: 200 mg Documented by: Bisacodyl (Dulcolax) 5 mg PO DAILY PRN PRN PRN Reason: Constipation Calcium Carbonate (Tums) 500 mg PO Q4H [facility] Last Admin: 02/19/19 13:13 Dose: 500 mg Documented by: Dextrose (D50w Syringe) 0 gm IV X1 PRN; Protocol PRN Reason: Hypoglycemia Enoxaparin Sodium (Lovenox) 70 mg SC DAILY [facility] Glucagon () 1 mg IM .X1 PRN PRN Reason: Hypoglycemia Sodium Chloride () 250 mls @ 15 mls/hr IV .[id number] PRN PRN Reason: Saline Flush Sodium Chloride () 1,000 mls @ 150 mls/hr IV .Q6H40M [facility] Last Infusion: 02/19/19 15:22 Dose: 150 mls/hr Documented by: Piperacillin Sod/Tazobactam (Sod 3.375 gm/ Sodium Chloride) 50 mls @ 12.5 mls/hr IV Q8 [facility] Last Admin: 02/19/19 13:13 Dose: 12.5 mls/hr Documented by: Insulin Human Lispro (Humalog Kwikpen (Bkc)) 0 unit SC TIDAC [facility]; Protocol Last Admin: 02/19/19 11:28 Dose: 2 units Documented by: Levothyroxine Sodium (Synthroid) 137 mcg PO DAILY@0600 [facility] Last Admin: 02/19/19 06:27 Dose: 137 mcg Documented by: Melatonin (Melatonin) 3 mg PO QHS PRN PRN PRN Reason: INSOMNIA Ondansetron HCl (Zofran) 4 mg IV Q8H PRN PRN PRN Reason: NAUSEA/VOMITING Sodium Chloride () 10 - 40 ml IV UD PRN PRN Reason: SALINE FLUSH Tbo-Filgrastim (Granix) 300 mcg SC DAILY [facility] Last Admin: 02/19/19 07:46 Dose: 300 mcg Documented by: STROKE Vital Signs/Narrative: Vital Signs Temp Pulse Resp BP Pulse Ox 02/19/19 14:37 98.4 F 106 H 16 125/59 H 96 Medical Necessity - Tobacco Use Smoking Status: Former smoker Tobacco Use: - Assessment/Plan All Active Problems (Last Reviewed 07/21/18 @ 14:52 by Alba Garcia) Tumor lysis syndrome (Acute) The patient 68-year-old female with history of laryngeal carcinoma status post laryngectomy, 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 Patient was started on saline diuresis. 1. Acute kidney injury, exact etiology unclear but possible differential diagnosis include MPGN with possible mixed cryoglobulinemia syndrome/nephrotoxicity of her elevated/prerenal/ATN/TLS. On allopurinol. Kidney ultrasound was ordered. UA is bland. Occult blood 150. CK normal. Electrolytes are being monitored and treated as per [facility] 02/18/19: Renal ultrasound reported unremarkable bilateral kidneys. Nonvisualization of the bladder. 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 Patient knows about the history as she had right upper quadrant sonogram done about a month ago in [place] and was told about possible gallbladder. She also knows that she is to follow-up with surgeon for elective cholecystectomy. Urine culture reported as mixed gram-positive and gram later carries a history of contamination. Respiratory panel parainfluenza 1. Blood cultures x2 are pending. She was started on IV Zosyn on 02/17/2019. Will screen is ordered. Patient is still neutropenic, WBC count 1000, ANC 0.4 thousand, H&H 7.5/24 platelet count 94,000. Calcium low 6.3. Calcium gluconate replaced. Phosphorus 2.9, magnesium 1.7. Kidney function did not show worsening, BUN/creatinine 19/2.46. Neurologist is following. 02/19/2019: Patient has positive fluid balance of 6660 mL therefore IV fluid is discontinued. BUN/creatinine 17/2.28 seems more intrinsic kidney disease. Still Worker Helper prefer biopsy most probably on Saturday. Patient Lovenox is changed as per the creatinine clearance. Hold Lovenox one day prior to biopsy. Still Worker Helper want dietary assistant clearance prior to kidney biopsy as patient also has pancytopenia, WBC count 1.4 thousand, H&H 8/25 and platelet count 119,000. 2. Neutropenic fever most likely viral fever from parainfluenza- pt has no symptoms of acute infection. Continue Zosyn. Check MRSA nasal swab. Likely source is + Parainfluenza on viral panel but with low blood counts will continue Abx. CXR negative. Urine with <1000 Mixed GPCs 02/19: No fever last 36 hours. 3. DM type II:- orals held, continue SSI. last a1c 10.6. 02/20: Glucose is between 162 to 50 mg percent. Continue Accu-Cheks. Insulin titrated up. 4. COPD - some wheezing on exam but no SOB or hypoxia. Wheezing at baseline. x1 duoneb and schedule if ongoing wheezing or worsening breathing. Continue incentive spirometer. PRN albuterol. Stable. 5. Hx DVT - continue outpatient lovenox 6. Neutropenia, pancytopenia - 2/2 chemo - continue granix qd. 7. Hypothyroidism - synthroid DVT ppx: lovenox Signout: Will stay over the weekend possible kidney biopsy on coming Saturday Microbiology Past 72 Hours 02/18/19 14:58 Swab (Method) Nasal Screen MRSA/MSSA - Final 02/17/19 19:14 Urine, Clean Catch Urine Culture - Final Mixed Gram Pos & Gram Neg Org 02/17/19 17:30 Mucosa - Nasopharyngeal Respiratory Panel (PCR) - Final Parainfluenza 1 Laboratory Results 02/17/19 15:50: Complement C4 35 02/18/19 16:32: POC Glucose 160 H 02/18/19 18:20: PT 14.5, INR 1.2, APTT 50.7 H 02/19/19 00:11: POC Glucose 168 H 02/19/19 06:30: WBC 1.4 L*, RBC 2.55 L, Hgb 8.0 L, Hct 25.2 L, MCV 98.8, MCH 31.4, MCHC 31.7 L, RDW Std Deviation 60.4 H, RDW Coeff of Nathan 16.7 H, Plt Count 119 L, MPV 11.9, Immature Gran % (Auto) 2.900 H, Neut % (Auto) 40.6 L, Lymph % (Auto) 39.9, [place] % (Auto) 7.2, Eos % (Auto) 8.0 H, Baso % (Auto) 1.4 H, Absolute Neuts (auto) 0.6 L, Absolute Lymphs (auto) 0.55 L, Nucleated RBC % 0, Diff Path Review July02/19/19 06:30: Sodium 142, Potassium 4.3, Chloride 113 H, Carbon Dioxide 22.0, Anion Gap 7, BUN 17, Creatinine 2.28 H, Estim Creat Clear Calc 21.84, Est GFR (MDRD) Af Amer 28 L, Est GFR (MDRD) Non-Af 23 L, BUN/Creatinine Ratio 7.5 L, Glucose 123 H, Calcium 6.8 L, Magnesium 1.6, Total Bilirubin 0.50, AST 32, ALT 53, Alkaline Phosphatase 128 H, Total Protein 5.3 L, Albumin 2.0 L, Globulin 3.3, Albumin/Globulin Ratio 0.6 L 02/19/19 06:31: POC Glucose 128 H 02/19/19 11:26: POC Glucose 253 H 02/19/19 14:00: MAY Screen Pending, JINA-1 Antibody Pending, SS-A/Ro IgG Antibody Pending, SS-B/La IgG Antibody Pending, Sm (Haile) Antibody Pending, DRESS CUTTER Antibody Pending, Scl-70 Scleroderma Ab Pending, Double Strand DNA Ab Pending, Centromere B Antibody Pending 02/19/19 14:00: c-ANCA Antibody Pending, p-ANCA Antibody Pending 02/19/19 14:00: Glomerular Base Memb Ab Pending, Complement C3 Pending Clinical Impression(s) from Imaging Studies Renal Ultrasound 02/17/19 13:04 IMPRESSION: Unremarkable bilateral kidneys. Nonvisualization of the bladder. Electronically Signed: Chip Barroso, at 15:35 EST Tel , Service support , Chest X-Ray 02/17/19 15:35 IMPRESSION: No acute cardiopulmonary findings. 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 Code Visit Inpatient E&M: 27286 Subs Hosp L2
[2019-02-19 16:55] LABS: Bedside Glucose 172 mg/dL (70-110)
[2019-02-19 20:21] VITALS: BP 153/80; PULSE 99; RESP 20; TEMP 36.7; O2SAT 95
[2019-02-19 22:51] LABS: Bedside Glucose 137 mg/dL (70-110)
[2019-02-20] VITALS (7 sets, daily range): BP systolic 124–150; BP diastolic 58–99; PULSE 88–112; RESP 16–20; TEMP 36.8–37.2; O2SAT 93–97
[2019-02-20] MEDS: 0.9% Normal Saline 1,000 ML 100 ML IV (00:17)
[2019-02-20] MEDS: Levothyroxine 137 MCG Tablet PO (06:10)
[2019-02-20] MEDS: Calcium Carbonate 500 MG Tablet PO ×5 (06:10→21:29)
[2019-02-20 06:33] LABS: Absolute Neutrophil Count 0.8 X10^3/uL (2.0-7.7); Basophil# 0.01 X10^3/uL; Basophil% 0.5 % (0-1); Eosinophil# 0.17 X10^3/uL; Hematocrit 25.1 % (37-47); Hemoglobin 7.9 g/dL (12.0-15.0); Lymphocyte % 42.6 % (19-41); Mean Corp Hgb Conc 31.5 g/dL (32-36); Mean Corpuscular Hgb 31.1 pg (27.0-32.0); Mean Corpuscular Volume 98.8 fL (81-99); Mean Platelet Vol. 11.2 fl (6.2-12.0); Monocyte# 0.13 X10^3/uL; Monocyte% 6.9 % (0-10); NRBC Flagged by Analyzer 0 % (0-5); Neutrophil # 0.75 X10^3/uL (2.7-7.7); Neutrophil % 39.9 % (47-70); POSITIVE DIFFERENTIAL YES; POSITIVE MORPHOLOGY YES; Platelet Count 121 K/mm3 (150-450); RBC Distribution Width CV 16.5 % (11.6-14.6); RBC Distribution Width SD 60.3 fl (35.1-43.9); Red Blood Count 2.54 M/mm3 (4.2-5.4); White Blood Count 1.9 K/mm3 (4.4-11.0)
[2019-02-20 06:36] LABS: Differential Indicated SCAN CRITERIA MET
[2019-02-20 06:51] LABS: Anion Gap 8 (5-15); BUN 11 mg/dL (7-18); BUN/Creat Ratio 5.1 RATIO (10-20); Chloride 110 mmol/L (98-107); Creatinine, Serum 2.16 mg/dL (0.55-1.02); EST Glomerular Filtration Rate 24 mL/min (>60); Est Glom Filt Rate - Afr Amer 29 mL/min (>60); Estimated Creatinine Clearance 23.05 ml/min; Glucose 112 mg/dL (74-106); Sodium Level 141 mmol/L (136-145)
[2019-02-20 06:55] LABS: Bedside Glucose 118 mg/dL (70-110)
[2019-02-20] MEDS: Ipratropium/Albuterol Sulfate 3 ML AMPUL.NEB INHALATION ×2 (07:38→19:26)
[2019-02-20 07:43] LABS: Iron 47 ug/dL (50-170); Iron Binding Capacity,Total 199 ug/dL (250-450); PERCENT IRON SATURATION 23.6 % (15.0-55.0)
[2019-02-20 08:20] LABS: Platelet Count 131 K/mm3 (150-450); RET-HE 32.9 pg (30-35); Reticulocyte Count 1.97 % (0.5-1.5)
[2019-02-20] MEDS: Enoxaparin 80 MG/0.8 ML Syringe 70 MG SC (09:32)
[2019-02-20] MEDS: Allopurinol 100 MG Tablet 200 MG PO (09:32)
[2019-02-20] MEDS: TBO-FILGRASTIM 300 MCG/0.5 ML ML SC (09:32)
--- NOTE | 2019-02-20 10:24 | PCM.PROGNOTE ---
Patient Problems: Active and Suspected Problems (Last Reviewed 07/21/18 @ 14:52 by Alba Garcia) Tumor lysis syndrome (Acute) Subjective: No shortness of breath no chest pain no nausea vomiting diarrhea - Physical Exam Vitals/I&O's: Vital Signs Temp Pulse Resp BP Pulse Ox 98.9 F 88 20 H 131/66 H 96 02/20/19 06:14 02/20/19 07:38 02/20/19 07:38 02/20/19 06:14 02/20/19 07:38 Oxygen Delivery Method Room Air Weight: 77.5 kg Body Mass Index (BMI) 26.2 Intake and Output for Last 24 Hours 02/18/19 02/19/19 02/20/19 23:59 23:59 23:59 Intake Total 3419.0 / 3769.0 5609.83 / 5609.83 349.17 / 349.17 Output Total 3450 / 4450 4300 / 4300 300 / 300 Balance -31.0 / -681.0 1309.83 / 1309.83 49.17 / 49.17 General: Alert, Oriented x3, Cooperative HEENT: Atraumatic, PERRLA, EOMI, Normocephalic Neck: Supple, No JVD, Negative Carotid Bruits, - - trach Lungs: Clear to auscultation, Normal air movement Cardiovascular: Regular rate, No murmurs Abdomen: Bowel Sounds Present, Soft, Non Tender Extremities: No edema, Capillary Refill Less than 3 Seconds Skin: No rashes, No breakdown Musculoskeletal: No Tenderness to Palpation of Joints or Extremities Neurological: Cranial nerves II-XII grossly intact Psych/Mental Status: Normal Affect, Appropriate Microbiology Past 72 Hours 02/18/19 14:58 Swab (Method) Nasal Screen MRSA/MSSA - Final 02/17/19 19:14 Urine, Clean Catch Urine Culture - Final Mixed Gram Pos & Gram Neg Org 02/17/19 17:30 Mucosa - Nasopharyngeal Respiratory Panel (PCR) - Final Parainfluenza 1 Laboratory Results 02/19/19 11:26: POC Glucose 253 H 02/19/19 14:00: MAY Screen Pending, JINA-1 Antibody Pending, SS-A/Ro IgG Antibody Pending, SS-B/La IgG Antibody Pending, Sm (Haile) Antibody Pending, LABORATORY CHIEF Antibody Pending, Scl-70 Scleroderma Ab Pending, Double Strand DNA Ab Pending, Centromere B Antibody Pending 02/19/19 14:00: c-ANCA Antibody Pending, p-ANCA Antibody Pending 02/19/19 14:00: Glomerular Base Memb Ab Pending, Complement C3 Pending 02/19/19 16:48: POC Glucose 172 H 02/19/19 22:39: POC Glucose 137 H 02/20/19 06:00: Sodium 141, Potassium 4.0, Chloride 110 H, Carbon Dioxide 23.0, Anion Gap 8, BUN 11, Creatinine 2.16 H, Estim Creat Clear Calc 23.05, Est GFR (MDRD) Af Amer 29 L, Est GFR (MDRD) Non-Af 24 L, BUN/Creatinine Ratio 5.1 L, Glucose 112 H, Calcium 7.0 L 02/20/19 06:00: WBC 1.9 L, RBC 2.54 L, Hgb 7.9 L, Hct 25.1 L, MCV 98.8, MCH 31.1, MCHC 31.5 L, RDW Std Deviation 60.3 H, RDW Coeff of Nathan 16.5 H, Plt Count 121 L, MPV 11.2, Immature Gran % (Auto) 1.100 H, Neut % (Auto) 39.9 L, Lymph % (Auto) 42.6 H, [place] % (Auto) 6.9, Eos % (Auto) 9.0 H, Baso % (Auto) 0.5, Absolute Neuts (auto) 0.8 L, Absolute Lymphs (auto) 0.80 L, Nucleated RBC % 0 02/20/19 06:00: Retic Count 1.97 H, Immature Retic Fraction 24.60 H, Retic Hgb Equivalent 32.9 02/20/19 06:00: Iron 47 L, TIBC 199 L, Iron Saturation 23.6 02/20/19 06:07: POC Glucose 118 H Current Medications Acetaminophen (Tylenol) 650 mg PO Q6H PRN PRN PRN Reason: FEVER Last Admin: 02/17/19 17:51 Dose: 650 mg Documented by: Hydrocodone Bitart/Acetaminophen ([place] 5mg-325mg) 1 tablet PO Q6H PRN PRN PRN Reason: Pain Score 4-10/10 Al Hydroxide/Mg Hydroxide (Mylanta Ii) 30 ml PO Q6H PRN PRN PRN Reason: INDIGESTION Last Admin: 02/16/19 21:35 Dose: 30 ml Documented by: Albuterol Sulfate (Ventolin Aerosols) 2.5 mg INHALATION Q4H PRN PRN PRN Reason: SOB &/OR WHEEZING Last Admin: 02/18/19 01:49 Dose: 2.5 mg Documented by: Albuterol/Ipratropium (Duoneb) 3 ml INHALATION Q6HWA.RT [facility] Last Admin: 02/20/19 07:38 Dose: 3 ml Documented by: Allopurinol (Zyloprim) 200 mg PO DAILY [facility] Last Admin: 02/20/19 09:32 Dose: 200 mg Documented by: Bisacodyl (Dulcolax) 5 mg PO DAILY PRN PRN PRN Reason: Constipation Calcium Carbonate (Tums) 500 mg PO Q4H [facility] Last Admin: 02/20/19 09:32 Dose: 500 mg Documented by: Dextrose (D50w Syringe) 0 gm IV X1 PRN; Protocol PRN Reason: Hypoglycemia Enoxaparin Sodium (Lovenox) 70 mg SC DAILY [facility] Last Admin: 02/20/19 09:32 Dose: 70 mg Documented by: Glucagon () 1 mg IM .X1 PRN PRN Reason: Hypoglycemia Sodium Chloride () 250 mls @ 15 mls/hr IV .[id number] PRN PRN Reason: Saline Flush Piperacillin Sod/Tazobactam (Sod 3.375 gm/ Sodium Chloride) 50 mls @ 12.5 mls/hr IV Q8 [facility] Last Infusion: 02/20/19 08:43 Dose: 12.5 mls/hr Documented by: Insulin Human Lispro (Humalog Kwikpen (Bkc)) 0 unit SC TIDAC [facility]; Protocol Last Admin: 02/20/19 06:25 Dose: Not Given Documented by: Levothyroxine Sodium (Synthroid) 137 mcg PO DAILY@0600 [facility] Last Admin: 02/20/19 06:10 Dose: 137 mcg Documented by: Melatonin (Melatonin) 3 mg PO QHS PRN PRN PRN Reason: INSOMNIA Ondansetron HCl (Zofran) 4 mg IV Q8H PRN PRN PRN Reason: NAUSEA/VOMITING Sodium Chloride () 10 - 40 ml IV UD PRN PRN Reason: SALINE FLUSH Tbo-Filgrastim (Granix) 300 mcg SC DAILY [facility] Last Admin: 02/20/19 09:32 Dose: 300 mcg Documented by: Medical Necessity - Tobacco Use Smoking Status: Former smoker Tobacco Use: - Assessment/Plan All Active Problems (Last Reviewed 07/21/18 @ 14:52 by Alba Garcia) Tumor lysis syndrome (Acute) KI differential diagnosis include MARIA D w/ MM less likely MPGN with possible mixed cryoglobulinemia syndrome/nephrotoxicity of Revlimid/ATN/less likely TLS Elevated uric acid Multiple myeloma on chemotherapy Pancytopenia Continue IV fluids. will consider renal biopsy. If we will proceed with renal biopsy she will need transfusion of PRBC and will need to check with hematology to see if cleared because she has a high risk of bleeding. Serum creatinine is 2.1 is slightly better less prerenal. The patient received Lovenox twice daily instead of daily for a few days will avoid renal biopsy today and consider renal biopsy on Saturday IF no significant improvement in renal function. Lovenox was changed to once daily . Can resume Lovenox twice daily for DVT treatment once GFR is more than 30. Serologies ordered will f/u. Avoid nephrotoxins D/w patient and dr. Odell
[2019-02-20] MEDS: Insulin Lispro 100 UNIT/ML INSULN.PEN SC (10:44)
[2019-02-20 10:52] LABS: Pathologist Review Reviewed
[2019-02-20 11:01] LABS: Bedside Glucose 211 mg/dL (70-110)
--- NOTE | 2019-02-20 13:57 | PN_ITS ---
Patient Problems: Active and Suspected Problems (Last Reviewed 07/21/18 @ 14:52 by Alba Garcia) Tumor lysis syndrome (Acute) Subjective: Patient seen and examined. Denies current complaints. Reports lower extremity swelling improving. Denies fever, chills. - Physical Exam Vitals/I&O's: Vital Signs Temp Pulse Resp BP Pulse Ox 98.8 F 108 H 16 150/99 H 95 02/20/19 12:15 02/20/19 12:15 02/20/19 12:15 02/20/19 12:15 02/20/19 12:15 Oxygen Delivery Method Room Air Weight: 170 lb 13.732 oz Body Mass Index (BMI) 26.2 Intake and Output for Last 24 Hours 02/18/19 02/19/19 02/20/19 23:59 23:59 23:59 Intake Total 3419.0 / 3769.0 5609.83 / 5609.83 367.50 / 367.50 Output Total 3450 / 4450 4300 / 4300 300 / 300 Balance -31.0 / -681.0 1309.83 / 1309.83 67.50 / 67.50 General: Alert, Oriented x3, Cooperative HEENT: Atraumatic, PERRLA, EOMI, Normocephalic Neck: Supple, No JVD, Negative Carotid Bruits, - - Stoma in place status post total laryngectomy Lungs: Clear to auscultation, Normal air movement Cardiovascular: Regular rate, Regular Rhythm, Normal S1, Normal S2, No murmurs Abdomen: Bowel Sounds Present, Soft, Non Tender, Non-Distended Extremities: No clubbing, No cyanosis, Edema - +2 bilateral lower extremities Skin: No rashes, No breakdown, - - Chronic skin changes with hyperpigmentation bilateral lower extremities Musculoskeletal: No Tenderness to Palpation of Joints or Extremities Neurological: Cranial nerves II-XII grossly intact, Neuro grossly intact Psych/Mental Status: Normal Affect, Appropriate Microbiology Past 72 Hours 02/18/19 14:58 Swab (Method) Nasal Screen MRSA/MSSA - Final 02/17/19 19:14 Urine, Clean Catch Urine Culture - Final Mixed Gram Pos & Gram Neg Org 02/17/19 17:30 Mucosa - Nasopharyngeal Respiratory Panel (PCR) - Final Parainfluenza 1 Laboratory Results 02/19/19 06:30: Diff Path Review Reviewed 02/19/19 14:00: MAY Screen Pending, JINA-1 Antibody Pending, SS-A/Ro IgG Antibody Pending, SS-B/La IgG Antibody Pending, Sm (Haile) Antibody Pending, HEADLINE WRITER Antibody Pending, Scl-70 Scleroderma Ab Pending, Double Strand DNA Ab Pending, Centromere B Antibody Pending 02/19/19 14:00: c-ANCA Antibody Pending, p-ANCA Antibody Pending 02/19/19 14:00: Glomerular Base Memb Ab Pending, Complement C3 Pending 02/19/19 16:48: POC Glucose 172 H 02/19/19 22:39: POC Glucose 137 H 02/20/19 06:00: Sodium 141, Potassium 4.0, Chloride 110 H, Carbon Dioxide 23.0, Anion Gap 8, BUN 11, Creatinine 2.16 H, Estim Creat Clear Calc 23.05, Est GFR (MDRD) Af Amer 29 L, Est GFR (MDRD) Non-Af 24 L, BUN/Creatinine Ratio 5.1 L, Glucose 112 H, Calcium 7.0 L 02/20/19 06:00: WBC 1.9 L, RBC 2.54 L, Hgb 7.9 L, Hct 25.1 L, MCV 98.8, MCH 31.1, MCHC 31.5 L, RDW Std Deviation 60.3 H, RDW Coeff of Nathan 16.5 H, Plt Count 121 L, MPV 11.2, Immature Gran % (Auto) 1.100 H, Neut % (Auto) 39.9 L, Lymph % (Auto) 42.6 H, [place] % (Auto) 6.9, Eos % (Auto) 9.0 H, Baso % (Auto) 0.5, Absolute Neuts (auto) 0.8 L, Absolute Lymphs (auto) 0.80 L, Nucleated RBC % 0 02/20/19 06:00: Retic Count 1.97 H, Immature Retic Fraction 24.60 H, Retic Hgb Equivalent 32.9 02/20/19 06:00: Iron 47 L, TIBC 199 L, Iron Saturation 23.6 02/20/19 06:07: POC Glucose 118 H 02/20/19 10:42: POC Glucose 211 H Current Medications Acetaminophen (Tylenol) 650 mg PO Q6H PRN PRN PRN Reason: FEVER Last Admin: 02/17/19 17:51 Dose: 650 mg Documented by: Hydrocodone Bitart/Acetaminophen ([place] 5mg-325mg) 1 tablet PO Q6H PRN PRN PRN Reason: Pain Score 4-10/10 Al Hydroxide/Mg Hydroxide (Mylanta Ii) 30 ml PO Q6H PRN PRN PRN Reason: INDIGESTION Last Admin: 02/16/19 21:35 Dose: 30 ml Documented by: Albuterol Sulfate (Ventolin Aerosols) 2.5 mg INHALATION Q4H PRN PRN PRN Reason: SOB &/OR WHEEZING Last Admin: 02/18/19 01:49 Dose: 2.5 mg Documented by: Albuterol/Ipratropium (Duoneb) 3 ml INHALATION Q6HWA.RT [facility] Last Admin: 02/20/19 13:10 Dose: Not Given Documented by: Allopurinol (Zyloprim) 200 mg PO DAILY [facility] Last Admin: 02/20/19 09:32 Dose: 200 mg Documented by: Bisacodyl (Dulcolax) 5 mg PO DAILY PRN PRN PRN Reason: Constipation Calcium Carbonate (Tums) 500 mg PO Q4H [facility] Last Admin: 02/20/19 09:32 Dose: 500 mg Documented by: Dextrose (D50w Syringe) 0 gm IV X1 PRN; Protocol PRN Reason: Hypoglycemia Enoxaparin Sodium (Lovenox) 70 mg SC DAILY [facility] Last Admin: 02/20/19 09:32 Dose: 70 mg Documented by: Glucagon () 1 mg IM .X1 PRN PRN Reason: Hypoglycemia Sodium Chloride () 250 mls @ 15 mls/hr IV .[id number] PRN PRN Reason: Saline Flush Piperacillin Sod/Tazobactam (Sod 3.375 gm/ Sodium Chloride) 50 mls @ 12.5 mls/hr IV Q8 [facility] Last Infusion: 02/20/19 10:11 Dose: Infused Documented by: Insulin Human Lispro (Humalog Reba (Bkc)) 0 unit SC TIDAC [facility]; Protocol Last Admin: 02/20/19 10:44 Dose: 2 units Documented by: Levothyroxine Sodium (Synthroid) 137 mcg PO DAILY@0600 [facility] Last Admin: 02/20/19 06:10 Dose: 137 mcg Documented by: Melatonin (Melatonin) 3 mg PO QHS PRN PRN PRN Reason: INSOMNIA Ondansetron HCl (Zofran) 4 mg IV Q8H PRN PRN PRN Reason: NAUSEA/VOMITING Sodium Chloride () 10 - 40 ml IV UD PRN PRN Reason: SALINE FLUSH Tbo-Filgrastim (Granix) 300 mcg SC DAILY [facility] Last Admin: 02/20/19 09:32 Dose: 300 mcg Documented by: Medical Necessity - Tobacco Use Smoking Status: Former smoker Tobacco Use: - Assessment/Plan All Active Problems (Last Reviewed 07/21/18 @ 14:52 by Alba Garcia) Tumor lysis syndrome (Acute) 1. Acute kidney injury-nephrology following. Unclear etiology. Renal ultrasound demonstrated unremarkable bilateral kidneys. Plan for kidney biopsy Saturday. 2. Neutropenic fever, viral syndrome secondary to parainfluenza- No other obvious source of infection. Chest x-ray and UA unremarkable. Blood cultures show no growth in 48 hours. Discontinue empiric IV Zosyn. 3. Suspected tumor lysis syndrome-on allopurinol. Initially received aggressive IV fluids. 4. Multiple myeloma- Follows with Dr. Glynn, oncology following. Undergoing chemotherapy. 5. Type 2 diabetes mellitus-hold home oral regimen. Accu-Cheks ACHS with sliding scale insulin. 6. Chronic COPD-no acute exacerbation. As needed albuterol aerosol. Oxygen stable on room air. 7. History of DVT-on Lovenox. 8. Neutropenia, pancytopenia secondary to chemotherapy regimen-continue Granix regimen. 9. Hypothyroidism-continue Synthroid regimen. 10. History of laryngeal cancer status post total laryngectomy DVT prophylaxis-Lovenox This patient was seen by Salome Gambino NP-C under the supervision of Dr. Odell.
[2019-02-20 16:01] LABS: Bedside Glucose 135 mg/dL (70-110)
[2019-02-20 16:21] LABS: ANTINUCLEAR ANTIBODIES DIRECT Negative (Negative)
[2019-02-20 16:33] LABS: Cytoplasmic Ab (C-ANCA) <1:20 titer (Neg:<1:20)
[2019-02-20 17:46] LABS: Creat.Clear Total Volume 2710 mL; Creatinine Serum Creat 2.2 mg/dL (0.6-1.0); EST Glomerular Filtration Rate 24 mL/min (>60); Est Glom Filt Rate - Afr Amer 24 mL/min (>60)
[2019-02-20 17:47] LABS: Creatinine Clearance 20 ml/min (100-200)
[2019-02-20 17:48] LABS: 24 HR UR TOTAL VOLUME 2710 ML
[2019-02-20 17:50] LABS: Microalbumin,Random Urine 22.3 mg/L (NOT. EST.); Urine Microalbumin (24 Hour) 60.4 mg/24 HR (0.0-30.0)
[2019-02-20 17:51] LABS: 24HR. Urine Creatinine 674.79 g/24 HR (0.70-1.90)
[2019-02-20 22:40] LABS: Bedside Glucose 195 mg/dL (70-110)
[2019-02-21] VITALS (8 sets, daily range): BP systolic 125–136; BP diastolic 58–70; PULSE 93–124; RESP 16–19; TEMP 36.9–37.5; O2SAT 92–99
[2019-02-21] MEDS: Calcium Carbonate 500 MG Tablet PO ×6 (03:03→21:29)
[2019-02-21] MEDS: Levothyroxine 137 MCG Tablet PO (06:39)
[2019-02-21 06:46] LABS: Bedside Glucose 124 mg/dL (70-110)
[2019-02-21 06:55] LABS: Hematocrit 24.9 % (37-47); Hemoglobin 7.9 g/dL (12.0-15.0); Mean Corp Hgb Conc 31.7 g/dL (32-36); Mean Corpuscular Hgb 31.1 pg (27.0-32.0); Mean Platelet Vol. 11.5 fl (6.2-12.0); POSITIVE COUNT YES; POSITIVE MORPHOLOGY YES; Platelet Count 144 K/mm3 (150-450); RBC Distribution Width CV 16.7 % (11.6-14.6); RBC Distribution Width SD 59.8 fl (35.1-43.9); Red Blood Count 2.54 M/mm3 (4.2-5.4); White Blood Count 2.7 K/mm3 (4.4-11.0)
[2019-02-21 07:01] LABS: Differential Indicated MANUAL DIFF
[2019-02-21] MEDS: Ipratropium/Albuterol Sulfate 3 ML AMPUL.NEB INHALATION ×3 (07:09→19:20)
[2019-02-21 07:24] LABS: Anion Gap 7 (5-15); BUN 12 mg/dL (7-18); Calcium,Total 7.6 mg/dL (8.5-10.1); Chloride 110 mmol/L (98-107); EST Glomerular Filtration Rate 26 mL/min (>60); Est Glom Filt Rate - Afr Amer 32 mL/min (>60); Glucose 120 mg/dL (74-106); Potassium 3.8 mmol/L (3.5-5.1); Sodium Level 142 mmol/L (136-145)
[2019-02-21 07:26] LABS: Anisocytosis 1+; Eosinophil 7 % (0-5); Hypochromasia 1+; Lymphocyte 42 % (19-41); Monocyte 11 % (0-10); Neutrophil-Band 2 % (0-5); Neutrophil-Segmented 38 % (47-70); Polychromasia 1+; Total Cells Counted 100 (MANUAL DIFF)
[2019-02-21 07:27] LABS: Microcytosis 1+; Platelet Estimate SLT DEC (ADEQ)
[2019-02-21 07:28] LABS: Absolute Lymphocyte Count 1.13 X10^3/uL (0.83-4.51); Absolute Neutrophil Count 1.1 X10^3/uL (2.0-7.7)
[2019-02-21] MEDS: Allopurinol 100 MG Tablet 200 MG PO (09:55)
[2019-02-21] MEDS: Enoxaparin 80 MG/0.8 ML Syringe 70 MG SC (09:56)
[2019-02-21] MEDS: TBO-FILGRASTIM 300 MCG/0.5 ML ML SC (09:57)
--- NOTE | 2019-02-21 10:29 | NURSING ---
Aware of Vital Signs that were taken by [facility] Glass Tinter this morning.
[2019-02-21] MEDS: 0.9% Normal Saline 1,000 ML 75 ML IV (11:11)
[2019-02-21] MEDS: Insulin Lispro 100 UNIT/ML INSULN.PEN SC ×2 (11:15→18:26)
[2019-02-21 11:21] LABS: Bedside Glucose 215 mg/dL (70-110)
--- NOTE | 2019-02-21 11:22 | NURSING ---
This nurse re-applied Delonte wraps to BLE at approximately 1030 today.
[2019-02-21 12:55] LABS: Perinuclear Ab (P-ANCA) <1:20 titer (Neg:<1:20)
--- NOTE | 2019-02-21 13:45 | PCM.PROGNOTE ---
Patient Problems: Active and Suspected Problems (Last Reviewed 07/21/18 @ 14:52 by Alba Garcia) Tumor lysis syndrome (Acute) Subjective: Patient seen and examined. Reports she is feeling well. Patient asks what her blood work resulted as this morning, updated patient on current labs. Continue plan for renal biopsy on Saturday. Patient complains of lower extremity swelling however refuses Delonte wraps or DEVORAH hose. - Physical Exam Vitals/I&O's: Vital Signs Temp Pulse Resp BP Pulse Ox 99.5 F H 104 H 16 136/69 H 95 02/21/19 13:39 02/21/19 13:39 02/21/19 13:39 02/21/19 13:39 02/21/19 13:39 Oxygen Delivery Method Room Air Weight: 170 lb 13.732 oz Body Mass Index (BMI) 26.2 Intake and Output for Last 24 Hours 02/19/19 02/20/19 02/21/19 23:59 23:59 23:59 Intake Total 5609.83 / 5609.83 847.50 / 847.50 100 / 100 Output Total 4300 / 4300 300 / 300 700 / 700 Balance 1309.83 / 1309.83 547.50 / 547.50 -600 / -600 General: Alert, Oriented x3, Cooperative HEENT: Atraumatic, PERRLA, EOMI, Normocephalic Oral: Moist Mucosa Neck: Supple, No JVD, Negative Carotid Bruits, - - Stoma in place status post total laryngectomy Lungs: Clear to auscultation, Normal air movement Cardiovascular: Regular rate, Regular Rhythm, Normal S1, Normal S2, No murmurs Abdomen: Bowel Sounds Present, Soft, Non Tender, Non-Distended Extremities: No clubbing, No cyanosis, Capillary Refill Less than 3 Seconds, Edema - +2 bilateral lower extremities Skin: No rashes, No breakdown, - - Chronic skin changes with hyperpigmentation bilateral lower extremities Musculoskeletal: No Tenderness to Palpation of Joints or Extremities Neurological: Cranial nerves II-XII grossly intact, Neuro grossly intact Psych/Mental Status: Normal Affect, Appropriate Microbiology Past 72 Hours 02/17/19 17:26 Blood Culture (Wb) - Right Wrist Blood Culture - Preliminary No growth in 48 hours. 02/17/19 17:15 Blood Culture (Wb) - Anticubital Right Blood Culture - Preliminary No growth in 48 hours. 02/18/19 14:58 Swab (Method) Nasal Screen MRSA/MSSA - Final 02/17/19 19:14 Urine, Clean Catch Urine Culture - Final Mixed Gram Pos & Gram Neg Org 02/17/19 17:30 Mucosa - Nasopharyngeal Respiratory Panel (PCR) - Final Parainfluenza 1 Laboratory Results 02/19/19 14:00: MAY Screen Negative, JINA-1 Antibody Not Reportable, SS-A/Ro IgG Antibody Not Reportable, SS-B/La IgG Antibody Not Reportable, Sm (Haile) Antibody Not Reportable, CHANGER FIXER Antibody Not Reportable, Scl-70 Scleroderma Ab Not Reportable, Double Strand DNA Ab Not Reportable, Centromere B Antibody Not Reportable 02/19/19 14:00: c-ANCA Antibody <1:20, Atypical p-ANCA <1:20, p-ANCA Antibody <1:20 02/20/19 15:48: POC Glucose 135 H 02/20/19 16:10: Creatinine 2.2 H, Est GFR (MDRD) Af Amer 24 L, Est GFR (MDRD) Non-Af 24 L, Urine Collection Time 24.0, Timed Urine Volume 2710, Urine Creatinine 24.0, Creatinine Clearance 20 L 02/20/19 16:10: Ur Collection Duration 24.0, Urine Total Volume 2710.00, Urine Creatinine 24.90, Ur Creatinine 24 Hour 674.79 H 02/20/19 16:10: Urine Collection Time 24.0, Urine Total Volume 2710, Urine Microalbumin 22.3, Ur Microalbumin 24 Hr 60.4 H 02/20/19 21:31: POC Glucose 195 H 02/21/19 05:33: WBC 2.7 L, RBC 2.54 L, Hgb 7.9 L, Hct 24.9 L, MCV 98.0, MCH 31.1, MCHC 31.7 L, RDW Std Deviation 59.8 H, RDW Coeff of Nathan 16.7 H, Plt Count 144 L, MPV 11.5, Neut % (Auto) Not Reportable, Absolute Neuts (auto) 1.1 L, Absolute Lymphs (auto) 1.13, Total Counted 100, Neutrophils % (Manual) 38 L, Band Neutrophils % 2, Lymphocytes % (Manual) 42 H, Monocytes % (Manual) 11 H, Eosinophils % (Manual) 7 H, Diff Path Review May , Platelet Estimate SLT DEC, Polychromasia 1+, Hypochromasia 1+, Anisocytosis 1+, Microcytosis 1+ 02/21/19 05:33: Sodium 142, Potassium 3.8, Chloride 110 H, Carbon Dioxide 25.0, Anion Gap 7, BUN 12, Creatinine 2.00 H, Estim Creat Clear Calc 24.90, Est GFR (MDRD) Af Amer 32 L, Est GFR (MDRD) Non-Af 26 L, BUN/Creatinine Ratio 6.0 L, Glucose 120 H, Calcium 7.6 L 02/21/19 06:36: POC Glucose 124 H 02/21/19 11:11: POC Glucose 215 H Current Medications Acetaminophen (Tylenol) 650 mg PO Q6H PRN PRN PRN Reason: FEVER Last Admin: 02/17/19 17:51 Dose: 650 mg Documented by: Hydrocodone Bitart/Acetaminophen ([place] 5mg-325mg) 1 tablet PO Q6H PRN PRN PRN Reason: Pain Score 4-10/10 Al Hydroxide/Mg Hydroxide (Mylanta Ii) 30 ml PO Q6H PRN PRN PRN Reason: INDIGESTION Last Admin: 02/16/19 21:35 Dose: 30 ml Documented by: Albuterol Sulfate (Ventolin Aerosols) 2.5 mg INHALATION Q4H PRN PRN PRN Reason: SOB &/OR WHEEZING Last Admin: 02/18/19 01:49 Dose: 2.5 mg Documented by: Albuterol/Ipratropium (Duoneb) 3 ml INHALATION Q6HWA.RT [facility] Last Admin: 02/21/19 07:09 Dose: 3 ml Documented by: Allopurinol (Zyloprim) 200 mg PO DAILY [facility] Last Admin: 02/21/19 09:55 Dose: 200 mg Documented by: Bisacodyl (Dulcolax) 5 mg PO DAILY PRN PRN PRN Reason: Constipation Calcium Carbonate (Tums) 500 mg PO Q4H [facility] Last Admin: 02/21/19 13:38 Dose: 500 mg Documented by: Dextrose (D50w Syringe) 0 gm IV X1 PRN; Protocol PRN Reason: Hypoglycemia Enoxaparin Sodium (Lovenox) 70 mg SC DAILY [facility] Last Admin: 02/21/19 09:56 Dose: 70 mg Documented by: Glucagon () 1 mg IM .X1 PRN PRN Reason: Hypoglycemia Sodium Chloride () 250 mls @ 15 mls/hr IV .[id number] PRN PRN Reason: Saline Flush Sodium Chloride () 1,000 mls @ 75 mls/hr IV .[id number] [facility] Last Admin: 02/21/19 11:11 Dose: 75 mls/hr Documented by: Insulin Human Lispro (Humalog Kwikpen (Bkc)) 0 unit SC TIDAC [facility]; Protocol Last Admin: 02/21/19 11:15 Dose: 2 units Documented by: Levothyroxine Sodium (Synthroid) 137 mcg PO DAILY@0600 [facility] Last Admin: 02/21/19 06:39 Dose: 137 mcg Documented by: Melatonin (Melatonin) 3 mg PO QHS PRN PRN PRN Reason: INSOMNIA Ondansetron HCl (Zofran) 4 mg IV Q8H PRN PRN PRN Reason: NAUSEA/VOMITING Sodium Chloride () 10 - 40 ml IV UD PRN PRN Reason: SALINE FLUSH Tbo-Filgrastim (Granix) 300 mcg SC DAILY [facility] Last Admin: 02/21/19 09:57 Dose: 300 mcg Documented by: Medical Necessity - Tobacco Use Smoking Status: Former smoker Tobacco Use: - Assessment/Plan All Active Problems (Last Reviewed 07/21/18 @ 14:52 by Alba Garcia) Tumor lysis syndrome (Acute) 1. Acute kidney injury-nephrology following. Unclear etiology. Renal ultrasound demonstrated unremarkable bilateral kidneys. Plan for kidney biopsy Saturday. Creatinine slowly improving. 2. Neutropenic fever, viral syndrome secondary to parainfluenza- No other obvious source of infection. Chest x-ray and UA unremarkable. Blood cultures show no growth in 48 hours. Discontinue empiric IV Zosyn. 3. Tumor lysis syndrome, ruled out-on allopurinol. Initially received aggressive IV fluids. Nephrology does not believe patient has tumor lysis syndrome. 4. Multiple myeloma- Follows with Dr. Glynn, oncology following. Undergoing chemotherapy. 5. Type 2 diabetes mellitus-hold home oral regimen. Accu-Cheks ACHS with sliding scale insulin. 6. Chronic COPD-no acute exacerbation. As needed albuterol aerosol. Oxygen stable on room air. 7. History of DVT-on Lovenox. 8. Neutropenia, pancytopenia secondary to chemotherapy regimen-continue Granix regimen. 9. Hypothyroidism-continue Synthroid regimen. 10. History of laryngeal cancer status post total laryngectomy DVT prophylaxis-Lovenox This patient was seen by DIRK Basilio under the supervision of Dr. Odell.
--- NOTE | 2019-02-21 14:49 | NURSING ---
This nurse reviewed charting of SN Rebeka
--- NOTE | 2019-02-21 14:57 | NURSING ---
This student nurse reported off to primary RN
--- NOTE | 2019-02-21 15:01 | NURSING ---
Addendum entered by Xiomara Parker 02/21/19 15:02: Also, Pt had taken off her Delonte wraps. Unable to tolerate them. Education given and even offered Melissa hose, pt refused both delonte wraps to BLE and melissa hose. Salome Gambino Aware. Original Note: This nurse is aware of Vitals taken this afternoon by Acquisition Marketing Coordinator/Instructor
[2019-02-21 16:26] LABS: Bedside Glucose 163 mg/dL (70-110)
--- NOTE | 2019-02-21 18:09 | PN.RENAL_ITS ---
Patient Problems: Active and Suspected Problems (Last Reviewed 07/21/18 @ 14:52 by Alba Garcia) Tumor lysis syndrome (Acute) Subjective: No nausea No vomiting No SOB - Physical Exam Vitals/I&O's: Vital Signs Temp Pulse Resp BP Pulse Ox 99.5 F H 100 19 H 136/69 H 95 02/21/19 13:39 02/21/19 13:48 02/21/19 13:48 02/21/19 13:39 02/21/19 13:39 Oxygen Delivery Method Room Air Weight: 77.5 kg Body Mass Index (BMI) 26.2 Intake and Output for Last 24 Hours 02/19/19 02/20/19 02/21/19 23:59 23:59 23:59 Intake Total 5609.83 / 5609.83 847.50 / 847.50 800 / 800 Output Total 4300 / 4300 300 / 300 1200 / 1200 Balance 1309.83 / 1309.83 547.50 / 547.50 -400 / -400 General: Alert, Oriented x3 HEENT: Atraumatic Oral: Moist Mucosa Neck: Supple, No JVD Lungs: Clear to auscultation, Normal air movement Cardiovascular: Regular rate, Regular Rhythm, Normal S1, Normal S2 Abdomen: Bowel Sounds Present, Soft Extremities: No clubbing, Edema - +1 edema B/L leg edema Musculoskeletal: No Tenderness to Palpation of Joints or Extremities Lymphatic: No Cervical, Supraclavicular, or Inguinal Adenopathy Neurological: Cranial nerves II-XII grossly intact, Neuro grossly intact Psych/Mental Status: Appropriate Microbiology Past 72 Hours 02/17/19 17:26 Blood Culture (Wb) - Right Wrist Blood Culture - Preliminary No growth in 48 hours. 02/17/19 17:15 Blood Culture (Wb) - Anticubital Right Blood Culture - Preliminary No growth in 48 hours. 02/18/19 14:58 Swab (Method) Nasal Screen MRSA/MSSA - Final 02/17/19 19:14 Urine, Clean Catch Urine Culture - Final Mixed Gram Pos & Gram Neg Org Laboratory Results 02/19/19 14:00: c-ANCA Antibody <1:20, Atypical p-ANCA <1:20, p-ANCA Antibody <1:20 02/20/19 21:31: POC Glucose 195 H 02/21/19 05:33: WBC 2.7 L, RBC 2.54 L, Hgb 7.9 L, Hct 24.9 L, MCV 98.0, MCH 31.1, MCHC 31.7 L, RDW Std Deviation 59.8 H, RDW Coeff of Nathan 16.7 H, Plt Count 144 L, MPV 11.5, Neut % (Auto) Not Reportable, Absolute Neuts (auto) 1.1 L, Absolute Lymphs (auto) 1.13, Total Counted 100, Neutrophils % (Manual) 38 L, Band Neutrophils % 2, Lymphocytes % (Manual) 42 H, Monocytes % (Manual) 11 H, Eosinophils % (Manual) 7 H, Diff Path Review July, Platelet Estimate SLT DEC, Polychromasia 1+, Hypochromasia 1+, Anisocytosis 1+, Microcytosis 1+ 02/21/19 05:33: Sodium 142, Potassium 3.8, Chloride 110 H, Carbon Dioxide 25.0, Anion Gap 7, BUN 12, Creatinine 2.00 H, Estim Creat Clear Calc 24.90, Est GFR (MDRD) Af Amer 32 L, Est GFR (MDRD) Non-Af 26 L, BUN/Creatinine Ratio 6.0 L, Glucose 120 H, Calcium 7.6 L 02/21/19 06:36: POC Glucose 124 H 02/21/19 11:11: POC Glucose 215 H 02/21/19 16:06: POC Glucose 163 H Current Medications Acetaminophen (Tylenol) 650 mg PO Q6H PRN PRN PRN Reason: FEVER Last Admin: 02/17/19 17:51 Dose: 650 mg Documented by: Hydrocodone Bitart/Acetaminophen ([place] 5mg-325mg) 1 tablet PO Q6H PRN PRN PRN Reason: Pain Score 4-10/10 Al Hydroxide/Mg Hydroxide (Mylanta Ii) 30 ml PO Q6H PRN PRN PRN Reason: INDIGESTION Last Admin: 02/16/19 21:35 Dose: 30 ml Documented by: Albuterol Sulfate (Ventolin Aerosols) 2.5 mg INHALATION Q4H PRN PRN PRN Reason: SOB &/OR WHEEZING Last Admin: 02/18/19 01:49 Dose: 2.5 mg Documented by: Albuterol/Ipratropium (Duoneb) 3 ml INHALATION Q6HWA.RT [facility] Last Admin: 02/21/19 13:48 Dose: 3 ml Documented by: Allopurinol (Zyloprim) 200 mg PO DAILY [facility] Last Admin: 02/21/19 09:55 Dose: 200 mg Documented by: Bisacodyl (Dulcolax) 5 mg PO DAILY PRN PRN PRN Reason: Constipation Calcium Carbonate (Tums) 500 mg PO Q4H [facility] Last Admin: 02/21/19 13:38 Dose: 500 mg Documented by: Dextrose (D50w Syringe) 0 gm IV X1 PRN; Protocol PRN Reason: Hypoglycemia Enoxaparin Sodium (Lovenox) 70 mg SC DAILY [facility] Last Admin: 02/21/19 09:56 Dose: 70 mg Documented by: Glucagon () 1 mg IM .X1 PRN PRN Reason: Hypoglycemia Sodium Chloride () 250 mls @ 15 mls/hr IV .[id number] PRN PRN Reason: Saline Flush Sodium Chloride () 1,000 mls @ 75 mls/hr IV .[id number] [facility] Last Admin: 02/21/19 11:11 Dose: 75 mls/hr Documented by: Insulin Human Lispro (Humalog Kwikpen (Bkc)) 0 unit SC TIDAC [facility]; Protocol Last Admin: 02/21/19 11:15 Dose: 2 units Documented by: Levothyroxine Sodium (Synthroid) 137 mcg PO DAILY@0600 [facility] Last Admin: 02/21/19 06:39 Dose: 137 mcg Documented by: Melatonin (Melatonin) 3 mg PO QHS PRN PRN PRN Reason: INSOMNIA Ondansetron HCl (Zofran) 4 mg IV Q8H PRN PRN PRN Reason: NAUSEA/VOMITING Sodium Chloride () 10 - 40 ml IV UD PRN PRN Reason: SALINE FLUSH Tbo-Filgrastim (Granix) 300 mcg SC DAILY [facility] Last Admin: 02/21/19 09:57 Dose: 300 mcg Documented by: Medical Necessity - Tobacco Use Smoking Status: Former smoker Tobacco Use: - Assessment/Plan All Active Problems (Last Reviewed 07/21/18 @ 14:52 by Alba Garcia) Tumor lysis syndrome (Acute) MARIA D differential diagnosis . UA is benign. MARIA D is likely related to TLS . Doubt the patient has monoclonal protein renal disease or MPGN with possible mixed cryoglobulinemia syndrome since her UA is benign. Autoimmune and vasculitis work up is negative Multiple myeloma on chemotherapy Pancytopenia Cr is better today Continue IV fluid at the same rate No need for kidney Bx if Cr continue to improve Avoid nephrotoxins Keep MAP > 65
[2019-02-22] MEDS: 0.9% Normal Saline 1,000 ML 75 ML IV (00:10)
[2019-02-22 00:31] LABS: Bedside Glucose 269 mg/dL (70-110)
[2019-02-22 02:10] VITALS: BP 138/75; PULSE 96; RESP 16; TEMP 36.8; O2SAT 92
[2019-02-22] MEDS: Calcium Carbonate 500 MG Tablet PO ×3 (02:13→11:03)
[2019-02-22 02:16] VITALS: PULSE 96; RESP 16; O2SAT 92
[2019-02-22 06:29] LABS: Hematocrit 24.3 % (37-47); Hemoglobin 7.7 g/dL (12.0-15.0); Mean Corp Hgb Conc 31.7 g/dL (32-36); Mean Corpuscular Hgb 31.7 pg (27.0-32.0); Mean Platelet Vol. 10.8 fl (6.2-12.0); Platelet Count 176 K/mm3 (150-450); RBC Distribution Width CV 16.6 % (11.6-14.6); Red Blood Count 2.43 M/mm3 (4.2-5.4); White Blood Count 4.7 K/mm3 (4.4-11.0)
[2019-02-22] MEDS: Levothyroxine 137 MCG Tablet PO (06:48)
[2019-02-22] MEDS: Insulin Lispro 100 UNIT/ML INSULN.PEN SC (06:49)
[2019-02-22 07:01] LABS: Anion Gap 8 (5-15); BUN 10 mg/dL (7-18); BUN/Creat Ratio 5.3 RATIO (10-20); Calcium,Total 7.7 mg/dL (8.5-10.1); Chloride 110 mmol/L (98-107); EST Glomerular Filtration Rate 28 mL/min (>60); Est Glom Filt Rate - Afr Amer 34 mL/min (>60); Estimated Creatinine Clearance 26.21 ml/min; Glucose 164 mg/dL (74-106); Potassium 3.9 mmol/L (3.5-5.1); Sodium Level 144 mmol/L (136-145)
[2019-02-22 07:01] LABS: Bedside Glucose 170 mg/dL (70-110)
[2019-02-22 07:27] VITALS: PULSE 85; RESP 18; O2SAT 95
[2019-02-22] MEDS: Ipratropium/Albuterol Sulfate 3 ML AMPUL.NEB INHALATION (07:27)
[2019-02-22 08:09] VITALS: BP 132/66; PULSE 102; RESP 16; TEMP 37; O2SAT 98
[2019-02-22] MEDS: Allopurinol 100 MG Tablet 200 MG PO (11:03)
--- NOTE | 2019-02-22 11:38 | DCINST_ITS ---
- Discharge Diagnoses Current Active Problems: Current Active and Chronic Problems (Last Reviewed 07/21/18 @ 14:52 by Alba Garcia) 1. Acute kidney injury 2. Neutropenic fever, viral syndrome secondary to parainfluenza You will use the following diet at home:: No restrictions Discharge Activity: Return to Normal Activity Call your doctor if you observe: Shortness of breath, Dizziness, Fainting spells, Chest pain Allergies/Adverse Reactions: Allergies No Known Allergies Allergy (Verified 02/16/19 13:04) Medications to take at Discharge albuterol sulfate HFA 90 mcg/actuation aerosol inhaler 2 puff INHALATION Q4H PRN g 01/23/18 Enoxaparin Sodium 02/16/19 Glipizide 10 mg PO BID 02/16/19 Hydrocodone/Acetaminophen [Hydrocodone-Acetamin 10-325 mg] 1 ea PO Q6H PRN PRN 02/16/19 Levothyroxine Sodium 137 mcg PO DAILY 02/16/19 Metformin HCl 1,000 mg PO BID 02/16/19 Primary Care Physician: Karen Dean MD [Primary Care Provider] - Please follow up with your Primary Care Physician in: 3-5 Days Test Results: Test results from this visit will be discussed in further detail at your follow- up appointment, if applicable. Please Follow Up With: Perla Thomas MD When: As scheduled Please Follow Up With: Quan Rosales MD When: 1 Week Proposed Discharge Date: 02/22/19
--- NOTE | 2019-02-22 11:39 | PCM.DC.SUM ---
Discharge Date and Diagnosis Date of Admission: 02/16/19 Date of Discharge: 02/22/19 - Primary Discharge Diagnosis Active and Suspected Problems (Last Reviewed 07/21/18 @ 14:52 by Alba Garcia) 1. Acute kidney injury 2. Neutropenic fever, viral syndrome secondary to parainfluenza 3. Tumor lysis syndrome, ruled out 4. Multiple myeloma 5. Type 2 diabetes mellitus 6. Chronic COPD 7. History of DVT 8. Neutropenia, pancytopenia secondary to chemotherapy regimen 9. Hypothyroidism 10. History of laryngeal cancer status post total laryngectomy - Secondary Discharge Diagnosis Chronic Problems (Last Reviewed 07/21/18 @ 14:52 by Alba Garcia) Larynx cancer (Chronic) Multiple myeloma (Chronic) Hypothyroidism (Chronic) Tachycardia (Chronic) Dermatitis (Chronic) Type 2 diabetes mellitus (Chronic) Type 2 diabetes, uncontrolled, with ulcer of ankle (Chronic) Last A1c 10 Hospital Course and Treatment Imaging Results: Diagnostic Data Renal Ultrasound 02/17/19 13:04 IMPRESSION: Unremarkable bilateral kidneys. Nonvisualization of the bladder. Electronically Signed: Chip Barroso, at 15:35 EST Tel , Service support , Chest X-Ray 02/17/19 15:35 IMPRESSION: No acute cardiopulmonary findings. 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 Electronically Signed: Chip Barroso, at 19:48 EST Tel , Service support , Dr. Glynn- Oncology Dr. Oro/Dr. Rosales-Nephrology Operations: None Procedures: None Summary of Care Provided: The patient is a 68 year old F admitted 02/16/2019 due to abnormal labs. 1. Acute kidney injury-nephrology following. Unclear etiology. Renal ultrasound demonstrated unremarkable bilateral kidneys. Given improvement in creatinine, renal biopsy not pursued. Follow-up with nephrology in 1 week. Follow-up with primary care provider in 1 week and oncology as previously scheduled. 2. Neutropenic fever, viral syndrome secondary to parainfluenza- No other obvious source of infection. Chest x-ray and UA unremarkable. Blood cultures show no growth in 48 hours. Discontinue empiric IV Zosyn. 3. Tumor lysis syndrome, ruled out-DC allopurinol. Nephrology does not believe patient has tumor lysis syndrome. 4. Multiple myeloma- Follows with Dr. Glynn, oncology following. Continue outpatient follow-up with oncology. 5. Type 2 diabetes mellitus-continue home oral regimen. 6. Chronic COPD-no acute exacerbation. As needed albuterol aerosol. Oxygen stable on room air. 7. History of DVT-continue outpatient Lovenox regimen. 8. Neutropenia, pancytopenia secondary to chemotherapy regimen-WBC 4.7 at discharge, further Granix discontinued. 9. Hypothyroidism-continue Synthroid regimen. 10. History of laryngeal cancer status post total laryngectomy General: Alert, Oriented x3, Cooperative HEENT: Atraumatic, PERRLA, EOMI, Normocephalic Oral: Moist Mucosa Neck: Supple, No JVD, Negative Carotid Bruits, - - Stoma in place status post total laryngectomy Lungs: Clear to auscultation, Normal air movement Cardiovascular: Regular rate, Regular Rhythm, Normal S1, Normal S2, No murmurs Abdomen: Bowel Sounds Present, Soft, Non Tender, Non-Distended Extremities: No clubbing, No cyanosis, Capillary Refill Less than 3 Seconds, Edema - +2 bilateral lower extremities Skin: No rashes, No breakdown, - - Chronic skin changes with hyperpigmentation bilateral lower extremities Musculoskeletal: No Tenderness to Palpation of Joints or Extremities Neurological: Cranial nerves II-XII grossly intact, Neuro grossly intact Psych/Mental Status: Normal Affect, Appropriate Patient seen and examined prior to discharge. Physical assessment as noted above. Patient is stable for discharge with follow up recommendations as noted above. This patient was seen by DIRK Basilio under the supervision of Dr. Odell. - Physical Exam Vitals/I&O's: Vital Signs Temp Pulse Resp BP Pulse Ox 98.6 F 102 H 16 132/66 H 98 02/22/19 08:09 02/22/19 08:09 02/22/19 08:09 02/22/19 08:09 02/22/19 08:09 Oxygen Delivery Method Room Air Weight: 174 lb 6.17 oz Body Mass Index (BMI) 26.2 Intake and Output for Last 24 Hours 02/20/19 02/21/19 02/22/19 23:59 23:59 23:59 Intake Total 847.50 / 847.50 1100 / 1200 1173.75 / 1173.75 Output Total 300 / 300 1600 / 1800 200 / 200 Balance 547.50 / 547.50 -500 / -600 973.75 / 973.75 Microbiology Past 72 Hours 02/17/19 17:26 Blood Culture (Wb) - Right Wrist Blood Culture - Preliminary No growth in 48 hours. 02/17/19 17:15 Blood Culture (Wb) - Anticubital Right Blood Culture - Preliminary No growth in 48 hours. 02/18/19 14:58 Swab (Method) Nasal Screen MRSA/MSSA - Final 02/17/19 19:14 Urine, Clean Catch Urine Culture - Final Mixed Gram Pos & Gram Neg Org Laboratory Results 02/19/19 14:00: c-ANCA Antibody <1:20, Atypical p-ANCA <1:20, p-ANCA Antibody <1:20 02/21/19 16:06: POC Glucose 163 H 02/21/19 21:31: POC Glucose 269 H 02/22/19 05:28: WBC 4.7, RBC 2.43 L, Hgb 7.7 L, Hct 24.3 L, MCV 100.0 H, MCH 31.7, MCHC 31.7 L, RDW Std Deviation 60.0 H, RDW Coeff of Nathan 16.6 H, Plt Count 176, MPV 10.8 02/22/19 05:28: Sodium 144, Potassium 3.9, Chloride 110 H, Carbon Dioxide 26.0, Anion Gap 8, BUN 10, Creatinine 1.90 H, Estim Creat Clear Calc 26.21, Est GFR (MDRD) Af Amer 34 L, Est GFR (MDRD) Non-Af 28 L, BUN/Creatinine Ratio 5.3 L, Glucose 164 H, Calcium 7.7 L 02/22/19 06:47: POC Glucose 170 H Current Medications Acetaminophen (Tylenol) 650 mg PO Q6H PRN PRN PRN Reason: FEVER Last Admin: 02/17/19 17:51 Dose: 650 mg Documented by: Hydrocodone Bitart/Acetaminophen ([place] 5mg-325mg) 1 tablet PO Q6H PRN PRN PRN Reason: Pain Score 4-10/10 Al Hydroxide/Mg Hydroxide (Mylanta Ii) 30 ml PO Q6H PRN PRN PRN Reason: INDIGESTION Last Admin: 02/16/19 21:35 Dose: 30 ml Documented by: Albuterol Sulfate (Ventolin Aerosols) 2.5 mg INHALATION Q4H PRN PRN PRN Reason: SOB &/OR WHEEZING Last Admin: 02/18/19 01:49 Dose: 2.5 mg Documented by: Albuterol/Ipratropium (Duoneb) 3 ml INHALATION Q6HWA.RT [facility] Last Admin: 02/22/19 07:27 Dose: 3 ml Documented by: Allopurinol (Zyloprim) 200 mg PO DAILY [facility] Last Admin: 02/22/19 11:03 Dose: 200 mg Documented by: Bisacodyl (Dulcolax) 5 mg PO DAILY PRN PRN PRN Reason: Constipation Calcium Carbonate (Tums) 500 mg PO Q4H [facility] Last Admin: 02/22/19 11:03 Dose: 500 mg Documented by: Dextrose (D50w Syringe) 0 gm IV X1 PRN; Protocol PRN Reason: Hypoglycemia Enoxaparin Sodium (Lovenox) 70 mg SC DAILY [facility] Last Admin: 02/22/19 11:07 Dose: Not Given Documented by: Glucagon () 1 mg IM .X1 PRN PRN Reason: Hypoglycemia Sodium Chloride () 250 mls @ 15 mls/hr IV .[id number] PRN PRN Reason: Saline Flush Insulin Human Lispro (Humalog Kwikpen (Bkc)) 0 unit SC TIDAC [facility]; Protocol Last Admin: 02/22/19 11:17 Dose: Not Given Documented by: Levothyroxine Sodium (Synthroid) 137 mcg PO DAILY@0600 [facility] Last Admin: 02/22/19 06:48 Dose: 137 mcg Documented by: Melatonin (Melatonin) 3 mg PO QHS PRN PRN PRN Reason: INSOMNIA Ondansetron HCl (Zofran) 4 mg IV Q8H PRN PRN PRN Reason: NAUSEA/VOMITING Sodium Chloride () 10 - 40 ml IV UD PRN PRN Reason: SALINE FLUSH Tbo-Filgrastim (Granix) 300 mcg SC DAILY [facility] Last Admin: 02/22/19 11:03 Dose: Not Given Documented by: Discharge Diet: No Restrictions Discharge Activity: Return to Normal Activity Call your doctor if you observe: Shortness of breath, Dizziness, Fainting spells, Chest pain Home Medications: Medications to take at Discharge albuterol sulfate HFA 90 mcg/actuation aerosol inhaler 2 puff INHALATION Q4H PRN g 01/23/18 Enoxaparin Sodium 02/16/19 Glipizide 10 mg PO BID 02/16/19 Hydrocodone/Acetaminophen [Hydrocodone-Acetamin 10-325 mg] 1 ea PO Q6H PRN PRN 02/16/19 Levothyroxine Sodium 137 mcg PO DAILY 02/16/19 Metformin HCl 1,000 mg PO BID 02/16/19 Primary Care Physician: Karen Dean MD [Primary Care Provider] - Please follow up with your Primary Care Physician in: 3-5 Days Please Follow Up With: Perla Thomas MD When: As scheduled Please Follow Up With: Quan Rosales MD When: 1 Week Disposition: Home Minutes spent on discharge:: 35 Patient Condition:: Stable Medical Necessity - Tobacco Use Smoking Status: Former smoker Tobacco Use: - Meaningful Use Info Meaningful Use Diagnoses (Choose all that apply): None applicable
[2019-02-23 14:11] LABS: Pathologist Review Reviewed
[2019-02-23 15:08] LABS: Complement C3 110 mg/dL (82-167)
[2019-02-23 22:37] LABS: Anti-Glomerular Basement Memb 4 units (0-20)
== END 2019-02-22 12:36 | disposition home or self-care (01) | DRG 682 ==
LOC: ED 13:44 → PCU 15:01
PROVIDERS: Internal Medicine; Internal Medicine Hematology & Oncology; Nurse Practitioner Family; Physician Assistant; Admitting Provider Internal Medicine; Emergency Provider Emergency Medicine; Family Provider Internal Medicine; PCP Internal Medicine; Referring Provider Internal Medicine; Visit Provider Internal Medicine
DX: N17.9 Acute kidney failure, unspecified (principal); D61.810 Antineoplastic chemotherapy induced pancytopenia; C90.00 Multiple myeloma not having achieved remission; J43.9 Emphysema, unspecified; Z93.0 Tracheostomy status; E03.9 Hypothyroidism, unspecified; D89.1 Cryoglobulinemia; D70.3 Neutropenia due to infection; R50.81 Fever presenting with conditions classified elsewhere; B34.8 Other viral infections of unspecified site; T45.1X5A Adverse effect of antineoplastic and immunosuppressive drugs, initial encounter; E11.65 Type 2 diabetes mellitus with hyperglycemia; Z79.84 Long term (current) use of oral hypoglycemic drugs; Z86.718 Personal history of other venous thrombosis and embolism; Z85.21 Personal history of malignant neoplasm of larynx; Z90.02 Acquired absence of larynx; Z87.891 Personal history of nicotine dependence
CPT/HCPCS: 36415; 71046; 76770; 80048; 80053; 81001; 81050; 82043; 82550; 82570; 82575; 82962; 83520; 83540; 83550; 83615; 83735; 84100; 84550; 85025; 85027; 85045; 85610; 85730; 86038; 86140; 86160; 86225; 86235; 86256; 87040; 87081; 87086; 87088; 87633; 94640; 97802; 97803; 99284; J7030; J7040; J0610; J1447

== ENCOUNTER → 2020-05-10 15:44 | Outpatient (CLI) | payer MEDICARE, SELFPAY ==
[2020-05-10 15:08] VITALS: BMI 33.6
[2020-05-10 17:20] LABS: Microalbumin:Creatinine Ratio 33.7 mg/g CRE (<30 mg/g CRE)
[2020-05-10 17:53] LABS: Cholesterol 267 mg/dL (200); High Density Lipoprotein 59 mg/dL; Thyroid Stim Hormone (TSH) 3.94 uIU/mL (0.358-3.74); Triglycerides 336 mg/dL; Very Low Density Lipoprotein 67 mg/dL (5-40)
== END ==
PROVIDERS: PCP Internal Medicine; Referring Provider Internal Medicine; Visit Provider Internal Medicine
DX: E11.9 Type 2 diabetes mellitus without complications (principal); E03.9 Hypothyroidism, unspecified
CPT/HCPCS: 36415; 80061; 82043; 82570; 84443

== ENCOUNTER → 2020-05-24 10:30 | Outpatient (CLI) | payer MEDICARE, SELFPAY ==
[2020-05-10 15:08] VITALS: BMI 33.6
--- NOTE | 2020-05-24 10:30 | EKG12_ITS ---
Test Reason : IRREGULAR HEART Blood Pressure : / mmHG Vent. Rate : 124 BPM Atrial Rate : 124 BPM P-R Int : 114 ms QRS Dur : 128 ms QT Int : 348 ms P-R-T Axes : 058 -58 080 degrees QTc Int : 499 ms Sinus tachycardia Right bundle branch block Left anterior fascicular block Bifascicular block Left ventricular hypertrophy with repolarization abnormality Abnormal ECG Confirmed by NIDA PARMAR, ALEX ([id number]), fashion editor RAI MURRY ([id number]) on 05/25/2020 9:28:19 AM Referred By: Karen Dean Confirmed By:ALEX ALVA MD
== END ==
PROVIDERS: PCP Internal Medicine; Referring Provider Internal Medicine; Visit Provider Internal Medicine
DX: R00.0 Tachycardia, unspecified (principal)
CPT/HCPCS: 93005

== ENCOUNTER → 2020-06-02 09:36 | Outpatient (CLI) | payer MEDICARE, SELFPAY ==
[2020-05-10 15:08] VITALS: BMI 33.6
--- NOTE | 2020-06-02 09:37 | MRI_ITS ---
HISTORY: Infarct of spleen. Multiple myeloma. Chronic left upper quadrant pain. Technique: Coronal axial T1 and T2-weighted images were obtained through the abdomen. Throat cancer. 1538 images. No intravenous gadolinium. Findings: The spleen appears normal without evidence of infarct. The liver is normal. The gallbladder is distended. The gallbladder wall is hypointense uniformly around its peripheral margin on T2 weighted imaging. This is similar but not quite as uniformly hypointense on T1-weighted imaging. Respiratory motion is fairly severe. The pancreas is normal. The adrenal glands are not enlarged. The kidneys are normal. The abdominal aorta and IVC are normal. The stomach is mostly decompressed. Visualized bowel gas pattern is normal. The heart is not enlarged. No significant pleural disease within the lung bases is perceived. No biliary ductal dilatation. No choledocholithiasis. MRI/Abdomen without Contrast IMPRESSION: Hypointense tissue surrounding the gallbladder lumen suggestive of calcification within the mayen of the gallbladder, often called a porcelain gallbladder. at 0705 Reported and signed by: Gama Harris MD Electronically Signed: Gama Harris MD at 7:03 EST Tel , Service support ,
== END ==
PROVIDERS: PCP Internal Medicine; Visit Provider Internal Medicine
DX: C90.00 Multiple myeloma not having achieved remission (principal); D73.5 Infarction of spleen; R10.12 Left upper quadrant pain
CPT/HCPCS: 74181

== ENCOUNTER → 2020-11-09 11:40 | Outpatient (CLI) | payer MEDICARE, SELFPAY ==
[2020-11-09 11:20] VITALS: BMI 33.6
[2020-11-09 15:48] LABS: BNP,B-Type NATRIURETIC PEPTIDE 798.7 pg/mL (0-100)
[2020-11-09 16:03] LABS: AST(SGOT) 16 U/L (15-37); Alanine Aminotransfer ALT/SGPT 41 U/L (13-56); Albumin, Serum 3.6 g/dL (3.2-5.0); Alkaline Phosphatase 105 U/L (45-117); Anion Gap 9 (5-15); BUN 46 mg/dL (7-18); BUN/Creat Ratio 28.8 RATIO (10-20); Calcium,Total 9.2 mg/dL (8.5-10.1); Chloride 99 mmol/L (98-107); EST Glomerular Filtration Rate 34 mL/min (>60); Est Glom Filt Rate - Afr Amer 41 mL/min (>60); Globulin 3.5 g/dL (2.2-4.2); Glucose 169 mg/dL (74-106); Potassium 4.2 mmol/L (3.5-5.1); Protein, Total 7.1 g/dL (6.4-8.2); Sodium Level 139 mmol/L (136-145)
== END ==
PROVIDERS: PCP Internal Medicine; Referring Provider Internal Medicine; Visit Provider Internal Medicine
DX: I50.9 Heart failure, unspecified (principal)
CPT/HCPCS: 36415; 80053; 83880